=== PATIENT | female | born 1980 | race Two or more races ===

== ENCOUNTER 2022-08-07 10:52 | Emergency (ER) | payer OTHER ==
[2022-08-07 11:10] VITALS: BP 118/80; PULSE 87; RESP 18; TEMP 98.1; BMI 18.6
[2022-08-07] MEDS ORDERED: DIPHTH,PERTUSS(ACELL),TET 0.5 ML DISP.SYRIN IM ONE (12:19)
[2022-08-07] MEDS ORDERED: CEPHALEXIN MONOHYDRATE 500 MG CAPSULE (UD) PO ONE (12:47)
== END 2022-08-07 13:02 | disposition home or self-care (01) ==
LOC: JERFT 10:52
PROC: 3E0234Z Introduction of Serum, Toxoid and Vaccine into Muscle, Percutaneous Approach (ICD-10-PCS; principal; 2022-08-07)
DX: L03.011 Cellulitis of right finger (principal); S61.212S Laceration without foreign body of right middle finger without damage to nail, sequela; W19.XXXA Unspecified fall, initial encounter
CPT/HCPCS: 73140-TC-RT-FY; 90471; 90715; 99283-25

== ENCOUNTER 2022-10-06 14:19 | Inpatient (IN) | payer OTHER ==
[2022-10-06 18:29] LABS: BASO % 0.7 % (0-2.0); EOS % 2.2 % (0-4.5); HEMOGLOBIN 12.3 GM/dL (10.7-15.3); LYMPH % 37.4 % (8-40); MCH 33.7 pg (25.7-33.7); MCHC 33.2 g/dl (32.0-36.0); MEAN CELL VOLUME 101.7 fl (80-96); MEAN PLT VOLUME 7.7 fl (7.5-11.1); MONO % 6.4 % (3.8-10.2); NEUT % 53.3 % (42.8-82.8); PLATELET COUNT 281 10^3/uL (134-434); RBC 3.64 M/mm3 (3.60-5.2); RDW 13.7 % (11.6-15.6); WHITE BLOOD COUNT 5.2 K/mm3 (4.0-10.0)
[2022-10-06 18:36] LABS: INR 1.08 (0.83-1.09); PROTHROMBIN TIME (PATIENT) 12.4 SEC (9.7-13.0)
[2022-10-06 18:39] LABS: ACTIVATED PTT 28.5 SECONDS (25.2-36.5)
[2022-10-06 19:26] LABS: EPI CELLS 19 /uL (0-25.1); HYALINE CASTS 1 /uL (0-3.1); URINE APPEARANCE CLOUDY; URINE BACTERIA 6261 /uL (0-1359); URINE BILIRUBIN NEGATIVE (NEGATIVE); URINE COLOR YELLOW; URINE GLUCOSE (UA) NEGATIVE (NEGATIVE); URINE KETONE NEGATIVE (NEGATIVE); URINE LEUK ESTERASE NEGATIVE (NEGATIVE); URINE NITRITE POSITIVE (NEGATIVE); URINE PROTEIN NEGATIVE (NEGATIVE); URINE RBC 10 /uL (0-23.9); URINE UROBILINOGEN 0.2 mg/dL (0.2-1.0); URINE WBC 28 /uL (0-25.8)
[2022-10-06] MEDS ORDERED: ACETAMINOPHEN 1000 MG/100 ML BAG IVPB ONE (19:55)
[2022-10-06 20:22] LABS: ALBUMIN 3.1 g/dl (3.4-5.0); CALCIUM 8.1 mg/dL (8.5-10.1)
[2022-10-06 20:23] LABS: BLOOD UREA NITROGEN 6.2 mg/dL (7-18)
[2022-10-06 20:26] LABS: CREATININE 0.6 mg/dL (0.55-1.3)
[2022-10-06 20:27] LABS: TOT PROT 5.8 g/dl (6.4-8.2)
[2022-10-06 20:28] LABS: BILIRUBIN,TOTAL 0.5 mg/dL (0.2-1)
[2022-10-06] MEDS ORDERED: ACETAMINOPHEN INJECTION 100 ML IVPB ONE (21:45)
[2022-10-06] MEDS ORDERED: CEFTRIAXONE 1 GM in DEXTROSE 5%-WATER - 100 ML IVPB ONE (21:55)
[2022-10-06] MEDS ORDERED: CEFTRIAXONE 1 GM/50 ML BAG ONE (22:33)
[2022-10-07] MEDS ORDERED: MELATONIN 5 MG TABLETS PO ONE (01:23)
[2022-10-07] MEDS ORDERED: ALBUTEROL SO4 HFA INHALER IH PRN (03:10)
[2022-10-07 08:08] LABS: BASO % 1.3 % (0-2.0); EOS % 4.1 % (0-4.5); HEMOGLOBIN 11.7 GM/dL (10.7-15.3); MCH 33.8 pg (25.7-33.7); MCHC 33.4 g/dl (32.0-36.0); MEAN CELL VOLUME 101.3 fl (80-96); MEAN PLT VOLUME 8.3 fl (7.5-11.1); MONO % 8.3 % (3.8-10.2); NEUT % 45.3 % (42.8-82.8); PLATELET COUNT 278 10^3/uL (134-434); RBC 3.46 M/mm3 (3.60-5.2); RDW 13.7 % (11.6-15.6); WHITE BLOOD COUNT 4.3 K/mm3 (4.0-10.0)
[2022-10-07 08:28] LABS: ALBUMIN 2.8 g/dl (3.4-5.0); CALCIUM 8.1 mg/dL (8.5-10.1)
[2022-10-07 08:29] LABS: BLOOD UREA NITROGEN 8.8 mg/dL (7-18); MAGNESIUM 2.2 mg/dL (1.8-2.4)
[2022-10-07 08:32] LABS: CREATININE 0.6 mg/dL (0.55-1.3); PHOSPHOROUS 3.5 mg/dL (2.5-4.9)
[2022-10-07 08:34] LABS: BILIRUBIN,TOTAL 0.7 mg/dL (0.2-1); TOT PROT 5.3 g/dl (6.4-8.2)
[2022-10-07] MEDS ORDERED: ENOXAPARIN NA (PORCINE) 40 MG/0.4 ML DISP.SYRIN SQ SCH (10:00)
[2022-10-07] MEDS ORDERED: FLUoxetine HCL 20 MG CAPSULE PO SCH (10:00)
[2022-10-07] MEDS ORDERED: clonazePAM 0.5 MG TABLET PO SCH (10:00)
[2022-10-07] MEDS ORDERED: DEXTROSE 4 GM TAB.CHEW PO SCH ×2 (10:15→11:45)
[2022-10-07] MEDS ORDERED: PANTOPRAZOLE 20 MG TABLET PO ONE (11:15)
[2022-10-07] MEDS ORDERED: clonazePAM 0.5 MG TABLET ONE (11:15)
[2022-10-07] MEDS ORDERED: POTASSIUM CHLORIDE TABS 20 MEQ TABLET.ER (FP) PO ONE (11:16)
[2022-10-07] MEDS ORDERED: metoPROLOL SUCCINATE 25 MG TAB.SR.24H (FP) PO ONE (11:16)
[2022-10-07] MEDS ORDERED: levETIRAcetam 500 MG TABLET (FP) PO ONE (11:16)
[2022-10-07] MEDS: PANTOPRAZOLE 20 MG TABLET PO SCH (11:21)
[2022-10-07] MEDS: metoPROLOL SUCCINATE 25 MG TAB.SR.24H (FP) PO SCH (11:21)
[2022-10-07] MEDS: levETIRAcetam 500 MG TABLET (FP) PO SCH ×2 (11:21→22:02)
[2022-10-07] MEDS: PERPHENAZINE 4 MG TABLET PO SCH (11:22)
[2022-10-07] MEDS: POTASSIUM CHLORIDE TABS 20 MEQ TABLET.ER (FP) PO SCH ×2 (11:22→22:02)
[2022-10-07] MEDS ORDERED: ZOLPIDEM TARTRATE 5 MG TABLET PO PRN (14:30)
[2022-10-07] MEDS ORDERED: GABAPENTIN 400 MG CAPSULE ONE (15:36)
[2022-10-07] MEDS: GABAPENTIN 400 MG CAPSULE PO SCH ×2 (15:41→22:01)
[2022-10-07] MEDS: BENZTROPINE MESYLATE 1 MG TABLET PO SCH (17:49)
[2022-10-07] MEDS: INSULIN SLIDING SCALE (NOVOLOG) 1 VIAL SQ SCH ×2 (18:00→22:06)
[2022-10-07] MEDS ORDERED: LORazepam 2 MG/ML SDV VIAL IVPUSH PRN (20:03)
[2022-10-07] MEDS: ATORVASTATIN CA 20 MG TABLET (FP) PO SCH (22:01)
[2022-10-07] MEDS: clonazePAM 0.5 MG TABLET PO PRN (22:02)
[2022-10-07] MEDS: CEFTRIAXONE 1 GM in DEXTROSE 5%-WATER - 50 ML IVPB SCH (22:37)
[2022-10-08] MEDS: INSULIN SLIDING SCALE (NOVOLOG) 1 VIAL SQ SCH ×4 (06:26→21:59)
[2022-10-08 07:04] LABS: COCAINE, UR NEGATIVE (NEGATIVE); METHADONE, UR NEGATIVE (NEGATIVE); OPIATES, URI NEGATIVE (NEGATIVE); URINE AMPHETAMINES NEGATIVE (NEGATIVE); URINE BENZODIAZEPINES NEGATIVE (NEGATIVE)
[2022-10-08 07:05] LABS: URINE BARBITURATES NEGATIVE (NEGATIVE)
[2022-10-08 07:25] LABS: PHENCYCLIDINE,URINE POSITIVE (NEGATIVE)
[2022-10-08 09:14] LABS: BLOOD UREA NITROGEN 7.5 mg/dL (7-18); CALCIUM 8.1 mg/dL (8.5-10.1)
[2022-10-08 09:15] LABS: MAGNESIUM 2.2 mg/dL (1.8-2.4)
[2022-10-08 09:16] LABS: BASO % 1.2 % (0-2.0); EOS % 2.3 % (0-4.5); HEMATOCRIT 40.9 % (32.4-45.2); HEMOGLOBIN 13.3 GM/dL (10.7-15.3); LYMPH % 37.1 % (8-40); MCH 33.3 pg (25.7-33.7); MCHC 32.4 g/dl (32.0-36.0); MEAN CELL VOLUME 102.5 fl (80-96); MEAN PLT VOLUME 7.8 fl (7.5-11.1); MONO % 6.8 % (3.8-10.2); NEUT % 52.6 % (42.8-82.8); PLATELET COUNT 282 10^3/uL (134-434); RBC 3.98 M/mm3 (3.60-5.2); RDW 14.2 % (11.6-15.6); WHITE BLOOD COUNT 4.7 K/mm3 (4.0-10.0)
[2022-10-08 09:17] LABS: CREATININE 0.7 mg/dL (0.55-1.3)
[2022-10-08 09:19] LABS: BILIRUBIN,TOTAL 0.5 mg/dL (0.2-1); TOT PROT 5.8 g/dl (6.4-8.2)
[2022-10-08] MEDS: FLUoxetine HCL 20 MG CAPSULE PO SCH (10:12)
[2022-10-08] MEDS: POTASSIUM CHLORIDE TABS 20 MEQ TABLET.ER (FP) PO SCH ×2 (10:12→21:52)
[2022-10-08] MEDS: levETIRAcetam 500 MG TABLET (FP) PO SCH ×2 (10:12→21:52)
[2022-10-08] MEDS: ENOXAPARIN NA (PORCINE) 40 MG/0.4 ML DISP.SYRIN SQ SCH (10:12)
[2022-10-08] MEDS: CEFTRIAXONE 1 GM in DEXTROSE 5%-WATER - 50 ML IVPB SCH (10:13)
[2022-10-08] MEDS: metoPROLOL SUCCINATE 25 MG TAB.SR.24H (FP) PO SCH (10:13)
[2022-10-08] MEDS: PANTOPRAZOLE 20 MG TABLET PO SCH (10:13)
[2022-10-08] MEDS: GABAPENTIN 400 MG CAPSULE PO SCH ×2 (10:13→21:52)
[2022-10-08] MEDS: PERPHENAZINE 4 MG TABLET PO SCH (10:14)
[2022-10-08] MEDS: BENZTROPINE MESYLATE 1 MG TABLET PO SCH (10:19)
[2022-10-08] MEDS: ATORVASTATIN CA 20 MG TABLET (FP) PO SCH (21:52)
[2022-10-08] MEDS: clonazePAM 0.5 MG TABLET PO PRN (22:05)
[2022-10-09] MEDS: INSULIN SLIDING SCALE (NOVOLOG) 1 VIAL SQ SCH ×4 (07:00→21:27)
[2022-10-09 08:27] LABS: BASO % 0.7 % (0-2.0); EOS % 2.5 % (0-4.5); HEMOGLOBIN 11.6 GM/dL (10.7-15.3); LYMPH % 36.2 % (8-40); MCH 34.9 pg (25.7-33.7); MCHC 34.3 g/dl (32.0-36.0); MEAN PLT VOLUME 8.2 fl (7.5-11.1); NEUT % 53.6 % (42.8-82.8); PLATELET COUNT 251 10^3/uL (134-434); RBC 3.33 M/mm3 (3.60-5.2); RDW 14.2 % (11.6-15.6); WHITE BLOOD COUNT 4.7 K/mm3 (4.0-10.0)
[2022-10-09 08:30] LABS: CALCIUM 7.7 mg/dL (8.5-10.1)
[2022-10-09 08:31] LABS: ALBUMIN 2.7 g/dl (3.4-5.0); BLOOD UREA NITROGEN 10.4 mg/dL (7-18); MAGNESIUM 2.2 mg/dL (1.8-2.4)
[2022-10-09 08:34] LABS: CREATININE 0.7 mg/dL (0.55-1.3)
[2022-10-09 08:35] LABS: TOT PROT 5.2 g/dl (6.4-8.2)
[2022-10-09 08:36] LABS: BILIRUBIN,TOTAL 0.5 mg/dL (0.2-1)
[2022-10-09] MEDS: metoPROLOL SUCCINATE 25 MG TAB.SR.24H (FP) PO SCH (09:39)
[2022-10-09] MEDS: FLUoxetine HCL 20 MG CAPSULE PO SCH (09:39)
[2022-10-09] MEDS: PANTOPRAZOLE 20 MG TABLET PO SCH (09:39)
[2022-10-09] MEDS: GABAPENTIN 400 MG CAPSULE PO SCH ×2 (09:39→21:23)
[2022-10-09] MEDS: CEFTRIAXONE 1 GM in DEXTROSE 5%-WATER - 50 ML IVPB SCH (09:40)
[2022-10-09] MEDS: levETIRAcetam 500 MG TABLET (FP) PO SCH ×2 (09:40→21:23)
[2022-10-09] MEDS: BENZTROPINE MESYLATE 1 MG TABLET PO SCH (09:40)
[2022-10-09] MEDS: ENOXAPARIN NA (PORCINE) 40 MG/0.4 ML DISP.SYRIN SQ SCH (09:40)
[2022-10-09] MEDS: PERPHENAZINE 4 MG TABLET PO SCH (09:43)
[2022-10-09] MEDS: POTASSIUM CHLORIDE TABS 20 MEQ TABLET.ER (FP) PO SCH ×2 (09:47→21:23)
[2022-10-09 13:33] VITALS: BMI 17.5
[2022-10-09] MEDS ORDERED: PANTOPRAZOLE 40 MG TABLET PO SCH (17:11)
[2022-10-09] MEDS: PANTOPRAZOLE 40 MG TABLET PO SCH (18:13)
[2022-10-09] MEDS: ATORVASTATIN CA 20 MG TABLET (FP) PO SCH (21:23)
[2022-10-10] MEDS: clonazePAM 0.5 MG TABLET PO PRN ×2 (05:51→21:26)
[2022-10-10] MEDS: INSULIN SLIDING SCALE (NOVOLOG) 1 VIAL SQ SCH ×4 (06:25→21:44)
[2022-10-10 08:37] LABS: BASO % 0.8 % (0-2.0); EOS % 3.2 % (0-4.5); HEMATOCRIT 34.9 % (32.4-45.2); HEMOGLOBIN 11.8 GM/dL (10.7-15.3); MCH 34.7 pg (25.7-33.7); MCHC 33.8 g/dl (32.0-36.0); MEAN CELL VOLUME 102.5 fl (80-96); MEAN PLT VOLUME 8.5 fl (7.5-11.1); MONO % 5.8 % (3.8-10.2); NEUT % 65.2 % (42.8-82.8); PLATELET COUNT 261 10^3/uL (134-434); RDW 13.9 % (11.6-15.6); WHITE BLOOD COUNT 3.5 K/mm3 (4.0-10.0)
[2022-10-10 08:58] LABS: ALBUMIN 2.8 g/dl (3.4-5.0); BLOOD UREA NITROGEN 8.8 mg/dL (7-18); MAGNESIUM 2.3 mg/dL (1.8-2.4)
[2022-10-10 09:01] LABS: CREATININE 0.6 mg/dL (0.55-1.3)
[2022-10-10 09:03] LABS: BILIRUBIN,TOTAL 0.6 mg/dL (0.2-1); TOT PROT 5.4 g/dl (6.4-8.2)
[2022-10-10] MEDS: CEFTRIAXONE 1 GM in DEXTROSE 5%-WATER - 50 ML IVPB SCH (09:20)
[2022-10-10] MEDS: levETIRAcetam 500 MG TABLET (FP) PO SCH ×2 (09:21→21:28)
[2022-10-10] MEDS: BENZTROPINE MESYLATE 1 MG TABLET PO SCH (09:21)
[2022-10-10] MEDS: metoPROLOL SUCCINATE 25 MG TAB.SR.24H (FP) PO SCH (09:21)
[2022-10-10] MEDS: ENOXAPARIN NA (PORCINE) 40 MG/0.4 ML DISP.SYRIN SQ SCH (09:21)
[2022-10-10] MEDS: POTASSIUM CHLORIDE TABS 20 MEQ TABLET.ER (FP) PO SCH ×2 (09:21→21:27)
[2022-10-10] MEDS: FLUoxetine HCL 20 MG CAPSULE PO SCH (09:21)
[2022-10-10] MEDS: GABAPENTIN 400 MG CAPSULE PO SCH ×2 (09:21→21:26)
[2022-10-10] MEDS: PANTOPRAZOLE 40 MG TABLET PO SCH (09:21)
[2022-10-10] MEDS: PERPHENAZINE 4 MG TABLET PO SCH (09:22)
[2022-10-11] MEDS: INSULIN SLIDING SCALE (NOVOLOG) 1 VIAL SQ SCH ×4 (06:09→22:09)
[2022-10-11 08:19] LABS: BASO % 0.9 % (0-2.0); EOS % 3.5 % (0-4.5); HEMATOCRIT 34.3 % (32.4-45.2); HEMOGLOBIN 11.4 GM/dL (10.7-15.3); LYMPH % 41.9 % (8-40); MCH 34.1 pg (25.7-33.7); MCHC 33.1 g/dl (32.0-36.0); MEAN PLT VOLUME 8.7 fl (7.5-11.1); MONO % 6.4 % (3.8-10.2); NEUT % 47.3 % (42.8-82.8); PLATELET COUNT 257 10^3/uL (134-434); RBC 3.33 M/mm3 (3.60-5.2); RDW 14.2 % (11.6-15.6); WHITE BLOOD COUNT 4.4 K/mm3 (4.0-10.0)
[2022-10-11 08:45] LABS: CALCIUM 7.9 mg/dL (8.5-10.1)
[2022-10-11 08:46] LABS: ALBUMIN 2.9 g/dl (3.4-5.0); BLOOD UREA NITROGEN 9.1 mg/dL (7-18); MAGNESIUM 2.3 mg/dL (1.8-2.4)
[2022-10-11 08:49] LABS: CREATININE 0.6 mg/dL (0.55-1.3); PHOSPHOROUS 3.5 mg/dL (2.5-4.9)
[2022-10-11 08:50] LABS: BILIRUBIN,TOTAL 0.3 mg/dL (0.2-1); TOT PROT 5.3 g/dl (6.4-8.2)
[2022-10-11] MEDS: PERPHENAZINE 4 MG TABLET PO SCH (10:14)
[2022-10-11] MEDS: BENZTROPINE MESYLATE 1 MG TABLET PO SCH (10:14)
[2022-10-11] MEDS: POTASSIUM CHLORIDE TABS 20 MEQ TABLET.ER (FP) PO SCH ×2 (10:17→22:09)
[2022-10-11] MEDS: metoPROLOL SUCCINATE 25 MG TAB.SR.24H (FP) PO SCH (10:17)
[2022-10-11] MEDS: CEFTRIAXONE 1 GM in DEXTROSE 5%-WATER - 50 ML IVPB SCH (10:17)
[2022-10-11] MEDS: GABAPENTIN 400 MG CAPSULE PO SCH ×2 (10:17→22:09)
[2022-10-11] MEDS: levETIRAcetam 500 MG TABLET (FP) PO SCH ×2 (10:17→22:09)
[2022-10-11] MEDS: PANTOPRAZOLE 40 MG TABLET PO SCH (10:17)
[2022-10-11] MEDS: FLUoxetine HCL 20 MG CAPSULE PO SCH (10:17)
[2022-10-11] MEDS: clonazePAM 0.5 MG TABLET PO PRN ×2 (10:43→22:09)
[2022-10-12] MEDS: INSULIN SLIDING SCALE (NOVOLOG) 1 VIAL SQ SCH ×4 (06:38→21:24)
[2022-10-12 07:27] LABS: BASO % 0.9 % (0-2.0); EOS % 3.4 % (0-4.5); HEMATOCRIT 36.5 % (32.4-45.2); HEMOGLOBIN 12.3 GM/dL (10.7-15.3); LYMPH % 40.3 % (8-40); MCH 34.6 pg (25.7-33.7); MCHC 33.6 g/dl (32.0-36.0); MEAN PLT VOLUME 8.3 fl (7.5-11.1); MONO % 7.3 % (3.8-10.2); NEUT % 48.1 % (42.8-82.8); PLATELET COUNT 278 10^3/uL (134-434); RBC 3.54 M/mm3 (3.60-5.2); RDW 13.9 % (11.6-15.6); WHITE BLOOD COUNT 4.4 K/mm3 (4.0-10.0)
[2022-10-12 07:53] LABS: CALCIUM 8.2 mg/dL (8.5-10.1)
[2022-10-12 07:54] LABS: BLOOD UREA NITROGEN 10.6 mg/dL (7-18)
[2022-10-12 07:56] LABS: CREATININE 0.7 mg/dL (0.55-1.3)
[2022-10-12 07:58] LABS: BILIRUBIN,TOTAL 0.4 mg/dL (0.2-1); TOT PROT 5.7 g/dl (6.4-8.2)
[2022-10-12] MEDS: metoPROLOL SUCCINATE 25 MG TAB.SR.24H (FP) PO SCH (09:53)
[2022-10-12] MEDS: POTASSIUM CHLORIDE TABS 20 MEQ TABLET.ER (FP) PO SCH ×2 (09:53→21:21)
[2022-10-12] MEDS: GABAPENTIN 400 MG CAPSULE PO SCH ×2 (09:54→21:21)
[2022-10-12] MEDS: CEFTRIAXONE 1 GM in DEXTROSE 5%-WATER - 50 ML IVPB SCH (09:54)
[2022-10-12] MEDS: PANTOPRAZOLE 40 MG TABLET PO SCH (09:54)
[2022-10-12] MEDS: levETIRAcetam 500 MG TABLET (FP) PO SCH ×2 (09:54→21:21)
[2022-10-12] MEDS: FLUoxetine HCL 20 MG CAPSULE PO SCH (09:54)
[2022-10-12] MEDS: BENZTROPINE MESYLATE 1 MG TABLET PO SCH (09:56)
[2022-10-12] MEDS: PERPHENAZINE 4 MG TABLET PO SCH (09:57)
[2022-10-12] MEDS: clonazePAM 0.5 MG TABLET PO PRN ×2 (10:09→21:24)
[2022-10-12] MEDS: CEFUROXIME AXETIL 500 MG TABLET PO SCH (21:21)
[2022-10-13 05:36] VITALS: RESP 18
[2022-10-13] MEDS: INSULIN SLIDING SCALE (NOVOLOG) 1 VIAL SQ SCH ×2 (06:13→11:14)
[2022-10-13] MEDS: POTASSIUM CHLORIDE TABS 20 MEQ TABLET.ER (FP) PO SCH (09:34)
[2022-10-13] MEDS: GABAPENTIN 400 MG CAPSULE PO SCH (09:35)
[2022-10-13] MEDS: levETIRAcetam 500 MG TABLET (FP) PO SCH (09:35)
[2022-10-13] MEDS: BENZTROPINE MESYLATE 1 MG TABLET PO SCH (09:35)
[2022-10-13] MEDS: CEFUROXIME AXETIL 500 MG TABLET PO SCH (09:35)
[2022-10-13] MEDS: PANTOPRAZOLE 40 MG TABLET PO SCH (09:35)
[2022-10-13] MEDS: FLUoxetine HCL 20 MG CAPSULE PO SCH (09:35)
[2022-10-13] MEDS: metoPROLOL SUCCINATE 25 MG TAB.SR.24H (FP) PO SCH (09:35)
[2022-10-13 10:36] VITALS: BP 127/89; PULSE 66; TEMP 97.8
[2022-10-13] MEDS: PERPHENAZINE 4 MG TABLET PO SCH (11:14)
== END 2022-10-13 13:17 | disposition home or self-care (01) | DRG 204 ==
LOC: JER 14:19 → JERBED 22:05 → OBSVTOIN 10-07 00:32 → J4W 10-07 20:43
PROVIDERS: ADMIT Internal Medicine; ATTEND Internal Medicine
DX: R55 Syncope and collapse (principal); N39.0 Urinary tract infection, site not specified; C18.9 Malignant neoplasm of colon, unspecified; R64 Cachexia; Z86.73 Personal history of transient ischemic attack (TIA), and cerebral infarction without residual deficits; E11.9 Type 2 diabetes mellitus without complications; I10 Essential (primary) hypertension; R56.9 Unspecified convulsions; N93.9 Abnormal uterine and vaginal bleeding, unspecified; R74.01 Elevation of levels of liver transaminase levels; B96.1 Klebsiella pneumoniae [K. pneumoniae] as the cause of diseases classified elsewhere
CPT/HCPCS: 0241U-QW; 36415; 70450-TC; 71045-TC-FY; 72125-TC; 72170-TC-FY; 72192-TC; 73521-TC-FY; 76705-TC; 76830-TC; 80053; 80307; 81003; 82550; 82607; 82962; 83036; 83605; 83735; 84100; 84484; 84703; 85025; 85610; 85730; 86704; 86803; 87086; 87186; 93005; 93010; 93306-TC; 93880-TC; 95816; 97116-GP; 97162-GP; 99285-25; G0378

== ENCOUNTER 2022-10-29 13:51 | Inpatient (IN) | payer OTHER ==
[2022-10-29 16:25] LABS: HEMATOCRIT 33.8 % (32.4-45.2); HEMOGLOBIN 11.6 GM/dL (10.7-15.3); MCH 34.9 pg (25.7-33.7); MCHC 34.3 g/dl (32.0-36.0); MEAN CELL VOLUME 101.8 fl (80-96); MEAN PLT VOLUME 7.5 fl (7.5-11.1); PLATELET COUNT 287 10^3/uL (134-434); RBC 3.32 M/mm3 (3.60-5.2); RDW 13.7 % (11.6-15.6); WHITE BLOOD COUNT 3.9 K/mm3 (4.0-10.0)
[2022-10-29 16:34] LABS: INR 1.03 (0.83-1.09); PROTHROMBIN TIME (PATIENT) 11.9 SEC (9.7-13.0)
[2022-10-29 16:37] LABS: ACTIVATED PTT 26.6 SECONDS (25.2-36.5)
[2022-10-29 16:43] LABS: CALCIUM 7.8 mg/dL (8.5-10.1)
[2022-10-29 16:44] LABS: ALBUMIN 3.1 g/dl (3.4-5.0); BLOOD UREA NITROGEN 9.3 mg/dL (7-18)
[2022-10-29 16:47] LABS: CREATININE 0.6 mg/dL (0.55-1.3)
[2022-10-29 16:48] LABS: TOT PROT 6.1 g/dl (6.4-8.2)
[2022-10-29 16:49] LABS: BILIRUBIN,TOTAL 0.3 mg/dL (0.2-1)
[2022-10-29] MEDS ORDERED: BENZTROPINE MESYLATE 1 MG TABLET PO SCH (18:15)
[2022-10-29 18:33] LABS: OPIATES, URI NEGATIVE (NEGATIVE); PHENCYCLIDINE,URINE NEGATIVE (NEGATIVE); URINE BENZODIAZEPINES NEGATIVE (NEGATIVE)
[2022-10-29 18:34] LABS: METHADONE, UR NEGATIVE (NEGATIVE)
[2022-10-29 18:35] LABS: EPI CELLS 6 /uL (0-25.1); HYALINE CASTS 2 /uL (0-3.1); PH,URINE 7.5 (5.0-8.0); URINE APPEARANCE CLOUDY; URINE BACTERIA >9,000 /uL (0-1359); URINE BILIRUBIN NEGATIVE (NEGATIVE); URINE COLOR YELLOW; URINE GLUCOSE (UA) NEGATIVE (NEGATIVE); URINE KETONE NEGATIVE (NEGATIVE); URINE LEUK ESTERASE 1+ (NEGATIVE); URINE NITRITE POSITIVE (NEGATIVE); URINE PROTEIN NEGATIVE (NEGATIVE); URINE RBC 12 /uL (0-23.9); URINE WBC 229 /uL (0-25.8)
[2022-10-29 18:36] LABS: COCAINE, UR NEGATIVE (NEGATIVE)
[2022-10-29 18:38] LABS: URINE AMPHETAMINES NEGATIVE (NEGATIVE); URINE BARBITURATES NEGATIVE (NEGATIVE)
[2022-10-29] MEDS ORDERED: CEFTRIAXONE 1 GM in DEXTROSE 5%-WATER - 100 ML IVPB ONE (19:35)
[2022-10-29] MEDS ORDERED: DEXTROSE 5%-WATER 500 ML PVC-FREE INFUS.BAG IV ONE (19:36)
[2022-10-29] MEDS ORDERED: CEFTRIAXONE 1 GM/50 ML BAG ONE (19:42)
[2022-10-29] MEDS ORDERED: levETIRAcetam 500 MG TABLET (FP) PO ONE (20:56)
[2022-10-29] MEDS ORDERED: clonazePAM 0.5 MG TABLET ONE (20:56)
[2022-10-29] MEDS: levETIRAcetam 500 MG TABLET (FP) PO SCH (21:03)
[2022-10-29] MEDS ORDERED: clonazePAM 0.5 MG TABLET PO SCH (22:00)
[2022-10-29] MEDS ORDERED: levETIRAcetam 500 MG TABLET (FP) PO SCH (22:00)
[2022-10-30] MEDS ORDERED: DEXTROSE 50%-WATER 25 GM/50 ML DISP.SYRIN IVPUSH PRN (03:22)
[2022-10-30] MEDS ORDERED: ALBUTEROL SO4 HFA INHALER IH PRN (03:56)
[2022-10-30 06:49] LABS: BASO % 0.8 % (0-2.0); EOS % 2.8 % (0-4.5); HEMATOCRIT 32.1 % (32.4-45.2); HEMOGLOBIN 11.1 GM/dL (10.7-15.3); LYMPH % 41.7 % (8-40); MCH 34.8 pg (25.7-33.7); MCHC 34.6 g/dl (32.0-36.0); MEAN CELL VOLUME 100.7 fl (80-96); MEAN PLT VOLUME 7.9 fl (7.5-11.1); MONO % 5.7 % (3.8-10.2); PLATELET COUNT 274 10^3/uL (134-434); RBC 3.19 M/mm3 (3.60-5.2); RDW 13.7 % (11.6-15.6); WHITE BLOOD COUNT 3.7 K/mm3 (4.0-10.0)
[2022-10-30] MEDS ORDERED: THIAMINE HCL 200 MG/2 ML VIAL ONE (07:07)
[2022-10-30 07:09] LABS: ALBUMIN 2.9 g/dl (3.4-5.0); CALCIUM 8.1 mg/dL (8.5-10.1); MAGNESIUM 2.1 mg/dL (1.8-2.4)
[2022-10-30] MEDS: THIAMINE HCL 200 MG/2 ML VIAL IVPB SCH (07:11)
[2022-10-30] MEDS: DEXTROSE 5%-NORMAL SALINE 1,000 ML IV SCH (07:11)
[2022-10-30 07:12] LABS: CREATININE 0.6 mg/dL (0.55-1.3); PHOSPHOROUS 3.1 mg/dL (2.5-4.9)
[2022-10-30] MEDS: INSULIN SLIDING SCALE (NOVOLOG) 1 VIAL SQ SCH ×4 (07:12→21:29)
[2022-10-30 07:14] LABS: BILIRUBIN,TOTAL 0.6 mg/dL (0.2-1); TOT PROT 5.6 g/dl (6.4-8.2)
[2022-10-30] MEDS ORDERED: PANTOPRAZOLE 40 MG TABLET PO ONE (09:18)
[2022-10-30] MEDS ORDERED: ASPIRIN 81 MG CHEWABLE TABLETS ONE (09:18)
[2022-10-30] MEDS ORDERED: NICOTINE 7 MG/24 HOURS TOPICAL PATCH TD ONE (09:18)
[2022-10-30] MEDS ORDERED: metoPROLOL SUCCINATE 25 MG TAB.SR.24H (FP) PO ONE (09:18)
[2022-10-30] MEDS ORDERED: levETIRAcetam 500 MG TABLET (FP) PO ONE (09:18)
[2022-10-30] MEDS: ENOXAPARIN NA (PORCINE) 40 MG/0.4 ML DISP.SYRIN SQ SCH (09:21)
[2022-10-30] MEDS: PANTOPRAZOLE 40 MG TABLET PO SCH (09:21)
[2022-10-30] MEDS: NICOTINE 7 MG/24 HOURS TOPICAL PATCH TD SCH (09:21)
[2022-10-30] MEDS: levETIRAcetam 500 MG TABLET (FP) PO SCH ×2 (09:21→21:23)
[2022-10-30] MEDS: ASPIRIN COATED 81 MG TABLET.EC PO SCH (09:21)
[2022-10-30] MEDS: metoPROLOL SUCCINATE 25 MG TAB.SR.24H (FP) PO SCH (09:22)
[2022-10-30] MEDS: CEFTRIAXONE 1 GM in DEXTROSE 5%-WATER - 50 ML IVPB SCH (20:25)
[2022-10-30] MEDS: ZOLPIDEM TARTRATE 5 MG TABLET PO SCH (21:23)
[2022-10-30] MEDS: ATORVASTATIN CA 20 MG TABLET (FP) PO SCH (21:23)
[2022-10-30] MEDS: GABAPENTIN 400 MG CAPSULE PO SCH (21:23)
[2022-10-31] MEDS: DEXTROSE 5%-NORMAL SALINE 1,000 ML IV SCH (03:00)
[2022-10-31] MEDS: INSULIN SLIDING SCALE (NOVOLOG) 1 VIAL SQ SCH ×4 (06:21→21:21)
[2022-10-31 08:24] LABS: HEMATOCRIT 33.2 % (32.4-45.2); HEMOGLOBIN 11.3 GM/dL (10.7-15.3); MCH 34.6 pg (25.7-33.7); MEAN CELL VOLUME 101.8 fl (80-96); MEAN PLT VOLUME 8.4 fl (7.5-11.1); PLATELET COUNT 259 10^3/uL (134-434); RBC 3.26 M/mm3 (3.60-5.2); RDW 13.4 % (11.6-15.6); WHITE BLOOD COUNT 4.4 K/mm3 (4.0-10.0)
[2022-10-31 08:56] LABS: CALCIUM 7.7 mg/dL (8.5-10.1)
[2022-10-31 08:57] LABS: ALBUMIN 2.7 g/dl (3.4-5.0); BLOOD UREA NITROGEN 11.2 mg/dL (7-18); MAGNESIUM 2.2 mg/dL (1.8-2.4)
[2022-10-31 09:00] LABS: CREATININE 0.6 mg/dL (0.55-1.3); PHOSPHOROUS 2.8 mg/dL (2.5-4.9)
[2022-10-31 09:01] LABS: BILIRUBIN,TOTAL 0.5 mg/dL (0.2-1); TOT PROT 5.3 g/dl (6.4-8.2)
[2022-10-31] MEDS: metoPROLOL SUCCINATE 25 MG TAB.SR.24H (FP) PO SCH (09:45)
[2022-10-31] MEDS: CEFTRIAXONE 1 GM in DEXTROSE 5%-WATER - 50 ML IVPB SCH (09:45)
[2022-10-31] MEDS: GABAPENTIN 400 MG CAPSULE PO SCH ×2 (09:45→21:22)
[2022-10-31] MEDS: PANTOPRAZOLE 40 MG TABLET PO SCH (09:45)
[2022-10-31] MEDS: FLUoxetine HCL 20 MG CAPSULE PO SCH (09:45)
[2022-10-31] MEDS: NICOTINE 7 MG/24 HOURS TOPICAL PATCH TD SCH (09:45)
[2022-10-31] MEDS: levETIRAcetam 500 MG TABLET (FP) PO SCH ×2 (09:45→21:22)
[2022-10-31] MEDS: ASPIRIN COATED 81 MG TABLET.EC PO SCH (09:45)
[2022-10-31] MEDS: ENOXAPARIN NA (PORCINE) 40 MG/0.4 ML DISP.SYRIN SQ SCH (09:46)
[2022-10-31] MEDS: PERPHENAZINE 4 MG TABLET PO SCH (09:47)
[2022-10-31] MEDS: THIAMINE HCL 200 MG/2 ML VIAL IVPB SCH (10:27)
[2022-10-31 15:04] VITALS: BMI 17.9
[2022-10-31] MEDS: ZOLPIDEM TARTRATE 5 MG TABLET PO SCH (21:21)
[2022-10-31] MEDS: clonazePAM 0.5 MG TABLET PO SCH (21:22)
[2022-10-31] MEDS: ATORVASTATIN CA 20 MG TABLET (FP) PO SCH (21:22)
[2022-11-01] MEDS: INSULIN SLIDING SCALE (NOVOLOG) 1 VIAL SQ SCH ×4 (06:56→21:13)
[2022-11-01] MEDS: DEXTROSE 5%-NORMAL SALINE 1,000 ML IV SCH ×2 (06:56→18:47)
[2022-11-01 07:59] LABS: HEMATOCRIT 30.3 % (32.4-45.2); HEMOGLOBIN 10.4 GM/dL (10.7-15.3); MCHC 34.3 g/dl (32.0-36.0); MEAN CELL VOLUME 102.2 fl (80-96); MEAN PLT VOLUME 8.5 fl (7.5-11.1); PLATELET COUNT 240 10^3/uL (134-434); RBC 2.97 M/mm3 (3.60-5.2); RDW 13.1 % (11.6-15.6); WHITE BLOOD COUNT 4.1 K/mm3 (4.0-10.0)
[2022-11-01 08:50] LABS: CALCIUM 7.3 mg/dL (8.5-10.1)
[2022-11-01 08:51] LABS: BLOOD UREA NITROGEN 8.1 mg/dL (7-18)
[2022-11-01 08:54] LABS: CREATININE 0.5 mg/dL (0.55-1.3)
[2022-11-01] MEDS: ENOXAPARIN NA (PORCINE) 40 MG/0.4 ML DISP.SYRIN SQ SCH (09:47)
[2022-11-01] MEDS: clonazePAM 0.5 MG TABLET PO SCH ×2 (09:48→21:12)
[2022-11-01] MEDS: metoPROLOL SUCCINATE 25 MG TAB.SR.24H (FP) PO SCH (09:48)
[2022-11-01] MEDS: FLUoxetine HCL 20 MG CAPSULE PO SCH (09:48)
[2022-11-01] MEDS: PANTOPRAZOLE 40 MG TABLET PO SCH (09:48)
[2022-11-01] MEDS: NICOTINE 7 MG/24 HOURS TOPICAL PATCH TD SCH (09:48)
[2022-11-01] MEDS: GABAPENTIN 400 MG CAPSULE PO SCH ×2 (09:48→21:12)
[2022-11-01] MEDS: levETIRAcetam 500 MG TABLET (FP) PO SCH ×2 (09:49→21:12)
[2022-11-01] MEDS: ASPIRIN COATED 81 MG TABLET.EC PO SCH (09:49)
[2022-11-01] MEDS: PERPHENAZINE 4 MG TABLET PO SCH (09:49)
[2022-11-01] MEDS: THIAMINE HCL 200 MG/2 ML VIAL IVPB SCH (09:49)
[2022-11-01] MEDS: CEFTRIAXONE 1 GM in DEXTROSE 5%-WATER - 50 ML IVPB SCH (09:50)
[2022-11-01] MEDS: ZOLPIDEM TARTRATE 5 MG TABLET PO SCH (21:12)
[2022-11-01] MEDS: ATORVASTATIN CA 20 MG TABLET (FP) PO SCH (21:12)
[2022-11-02] MEDS: INSULIN SLIDING SCALE (NOVOLOG) 1 VIAL SQ SCH ×4 (06:14→21:54)
[2022-11-02] MEDS: DEXTROSE 5%-NORMAL SALINE 1,000 ML IV SCH (06:18)
[2022-11-02] MEDS: THIAMINE HCL 200 MG/2 ML VIAL IVPB SCH (09:37)
[2022-11-02] MEDS: clonazePAM 0.5 MG TABLET PO SCH ×2 (09:37→21:05)
[2022-11-02] MEDS: levETIRAcetam 500 MG TABLET (FP) PO SCH (09:38)
[2022-11-02] MEDS: PANTOPRAZOLE 40 MG TABLET PO SCH (09:38)
[2022-11-02] MEDS: FLUoxetine HCL 20 MG CAPSULE PO SCH (09:38)
[2022-11-02] MEDS: ASPIRIN COATED 81 MG TABLET.EC PO SCH (09:38)
[2022-11-02] MEDS: GABAPENTIN 400 MG CAPSULE PO SCH ×2 (09:38→21:05)
[2022-11-02] MEDS: metoPROLOL SUCCINATE 25 MG TAB.SR.24H (FP) PO SCH (09:38)
[2022-11-02] MEDS: ENOXAPARIN NA (PORCINE) 40 MG/0.4 ML DISP.SYRIN SQ SCH (09:38)
[2022-11-02] MEDS: NICOTINE 7 MG/24 HOURS TOPICAL PATCH TD SCH (09:39)
[2022-11-02] MEDS: PERPHENAZINE 4 MG TABLET PO SCH (09:43)
[2022-11-02] MEDS: CEFTRIAXONE 1 GM in DEXTROSE 5%-WATER - 50 ML IVPB SCH (10:14)
[2022-11-02] MEDS: POLYETHYLENE GLYCOL (HEALTHYLAX) 3350 17 GM PACKET PO SCH ×2 (10:50→21:05)
[2022-11-02] MEDS: LACOSAMIDE 100 MG TABLET PO SCH (15:06)
[2022-11-02] MEDS: ATORVASTATIN CA 20 MG TABLET (FP) PO SCH (21:05)
[2022-11-02] MEDS: ZOLPIDEM TARTRATE 5 MG TABLET PO SCH (21:06)
[2022-11-03 05:17] VITALS: RESP 18
[2022-11-03] MEDS: INSULIN SLIDING SCALE (NOVOLOG) 1 VIAL SQ SCH ×2 (06:08→12:00)
[2022-11-03] MEDS: ENOXAPARIN NA (PORCINE) 40 MG/0.4 ML DISP.SYRIN SQ SCH (09:33)
[2022-11-03] MEDS: CEFTRIAXONE 1 GM in DEXTROSE 5%-WATER - 50 ML IVPB SCH (09:33)
[2022-11-03] MEDS: LACOSAMIDE 100 MG TABLET PO SCH (09:34)
[2022-11-03] MEDS: clonazePAM 0.5 MG TABLET PO SCH (09:34)
[2022-11-03] MEDS: NICOTINE 7 MG/24 HOURS TOPICAL PATCH TD SCH (09:34)
[2022-11-03] MEDS: POLYETHYLENE GLYCOL (HEALTHYLAX) 3350 17 GM PACKET PO SCH (09:34)
[2022-11-03] MEDS: FLUoxetine HCL 20 MG CAPSULE PO SCH (09:35)
[2022-11-03] MEDS: ASPIRIN COATED 81 MG TABLET.EC PO SCH (09:35)
[2022-11-03] MEDS: PANTOPRAZOLE 40 MG TABLET PO SCH (09:35)
[2022-11-03] MEDS: GABAPENTIN 400 MG CAPSULE PO SCH (09:35)
[2022-11-03] MEDS: metoPROLOL SUCCINATE 25 MG TAB.SR.24H (FP) PO SCH (09:36)
[2022-11-03] MEDS: THIAMINE HCL 200 MG/2 ML VIAL IVPB SCH (09:36)
[2022-11-03] MEDS: PERPHENAZINE 4 MG TABLET PO SCH (09:36)
[2022-11-03] MEDS ORDERED: levETIRAcetam 500 MG TABLET (FP) PO SCH (10:00)
[2022-11-03 14:47] VITALS: BP 108/69; PULSE 81; TEMP 98.9
== END 2022-11-03 16:58 | disposition home or self-care (01) | DRG 463 ==
LOC: JER 13:51 → JERBED 20:01 → UNDOADMIN 20:01 → J4W 10-30 12:44
PROVIDERS: ADMIT Internal Medicine; ATTEND Internal Medicine
DX: N39.0 Urinary tract infection, site not specified (principal); G92.8 Other toxic encephalopathy; J45.909 Unspecified asthma, uncomplicated; F43.10 Post-traumatic stress disorder, unspecified; T50.995A Adverse effect of other drugs, medicaments and biological substances, initial encounter; T42.4X5A Adverse effect of benzodiazepines, initial encounter; F20.9 Schizophrenia, unspecified; R64 Cachexia; Z68.1 Body mass index [BMI] 19.9 or less, adult; B96.1 Klebsiella pneumoniae [K. pneumoniae] as the cause of diseases classified elsewhere; E11.649 Type 2 diabetes mellitus with hypoglycemia without coma; F17.210 Nicotine dependence, cigarettes, uncomplicated; R56.9 Unspecified convulsions; Z85.038 Personal history of other malignant neoplasm of large intestine; Z86.73 Personal history of transient ischemic attack (TIA), and cerebral infarction without residual deficits
CPT/HCPCS: 0241U-QW; 36415; 70450-TC; 70496-TC; 70498-TC; 71046-TC-FY; 72125-TC; 72170-TC-FY; 73560-TC-LT-FY; 73560-TC-RT-FY; 80048; 80053; 80177; 80307; 81003; 82140; 82550; 82962; 83605; 83690; 83735; 84100; 84146; 84484; 84703; 85025; 85027; 85610; 85730; 86850; 86900; 86901; 87086; 87186; 93005; 93010; 97116-GP; 97161-GP; 99285-25; G0480

== ENCOUNTER 2022-12-29 04:07 | Day surgery (SDC) | payer OTHER ==
[2022-12-24 10:11] VITALS: BMI 16.9
[2022-12-29] MEDS ORDERED: ACETAMINOPHEN 325 MG TABLET (FP) PO PRN (09:00)
[2022-12-29] MEDS ORDERED: PROMETHAZINE HCL 25 MG/1 ML VIAL IVPB PRN (10:00)
[2022-12-29] MEDS ORDERED: LACTATED RINGERS SOLUTION 1,000 ML IV SCH (10:00)
[2022-12-29] MEDS ORDERED: ONDANSETRON 4 MG/2 ML VIAL IVPUSH PRN (10:00)
[2022-12-29] MEDS ORDERED: KETOROLAC TROMETHAMINE 30 MG/1 ML VIAL ONE (10:23)
[2022-12-29] MEDS ORDERED: DEXAMETHASONE SOD PHOSPHATE 4 MG/1 ML VIAL ONE (10:23)
[2022-12-29] MEDS ORDERED: PROPOFOL 20 ML ONE (10:24)
[2022-12-29] MEDS ORDERED: OXYTOCIN 10 UNITS/ML VIAL ONE (11:00)
[2022-12-29] MEDS ORDERED: MIDAZOLAM HCL 2 MG/2 ML SINGLE DOSE VIAL ONE (11:18)
[2022-12-29] MEDS ORDERED: ALBUTEROL SO4 HFA INHALER IH PRN (11:43)
[2022-12-29] MEDS ORDERED: PATIENT'S OWN MEDICATION (NON-FORMULARY) (Levetiracetam [Levetiracetam] 1,000 MG Tablet) PO SCH (11:45)
[2022-12-29] MEDS ORDERED: metoPROLOL SUCCINATE 25 MG TAB.SR.24H (FP) PO SCH (11:45)
[2022-12-29] MEDS ORDERED: levETIRAcetam 500 MG TABLET (FP) PO ONE (11:53)
[2022-12-29] MEDS ORDERED: metFORMIN HCL 500 MG TABLET (FP) PO SCH (13:45)
[2022-12-29 13:47] VITALS: RESP 16
[2022-12-29] MEDS: BENZTROPINE MESYLATE 1 MG TABLET PO SCH (14:30)
[2022-12-29] MEDS: amLODIPine BESYLATE 10 MG TABLET (FP) PO SCH (14:30)
[2022-12-29] MEDS: levETIRAcetam 500 MG TABLET (FP) PO SCH ×2 (14:31→22:38)
[2022-12-29] MEDS: clonazePAM 0.5 MG TABLET PO SCH (14:36)
[2022-12-29] MEDS: PANTOPRAZOLE 40 MG TABLET PO SCH (14:45)
[2022-12-29] MEDS: FLUoxetine HCL 20 MG CAPSULE PO SCH (14:45)
[2022-12-29] MEDS: metoPROLOL SUCCINATE 25 MG TAB.SR.24H (FP) PO SCH (14:46)
[2022-12-29] MEDS: PERPHENAZINE 4 MG TABLET PO SCH (14:47)
[2022-12-29] MEDS: oxyCODONE HCL 5 MG TABLET PO PRN (17:40)
[2022-12-29] MEDS: IBUPROFEN 400 MG TABLET (FP) PO PRN (19:16)
[2022-12-29 21:09] LABS: EOS % 1.1 % (0-4.5); HEMATOCRIT 32.4 % (32.4-45.2); HEMOGLOBIN 10.8 GM/dL (10.7-15.3); LYMPH % 2.8 % (8-40); MCH 33.1 pg (25.7-33.7); MCHC 33.5 g/dl (32.0-36.0); MEAN CELL VOLUME 99.1 fl (80-96); MONO % 2.4 % (3.8-10.2); NEUT % 93.7 % (42.8-82.8); PLATELET COUNT 247 10^3/uL (134-434); RBC 3.27 M/mm3 (3.60-5.2); RDW 14.8 % (11.6-15.6); WHITE BLOOD COUNT 10.1 K/mm3 (4.0-10.0)
[2022-12-29] MEDS ORDERED: ATORVASTATIN CA 20 MG TABLET (FP) PO SCH (22:00)
[2022-12-29] MEDS ORDERED: CYCLOBENZAPRINE HCL 10 MG TABLET (FP) PO SCH (22:00)
[2022-12-29] MEDS ORDERED: ZOLPIDEM TARTRATE 5 MG TABLET PO PRN (22:00)
[2022-12-29 22:10] LABS: ANISOCYTOSIS 1+; MACROCYTOSIS 1+
[2022-12-29 23:04] LABS: URINE APPEARANCE CLEAR; URINE BILIRUBIN NEGATIVE (NEGATIVE); URINE COLOR YELLOW; URINE GLUCOSE (UA) 2+ (NEGATIVE); URINE KETONE NEGATIVE (NEGATIVE); URINE LEUK ESTERASE NEGATIVE (NEGATIVE); URINE NITRITE NEGATIVE (NEGATIVE); URINE PROTEIN NEGATIVE (NEGATIVE); URINE UROBILINOGEN 0.2 mg/dL (0.2-1.0)
[2022-12-29 23:08] LABS: METHADONE, UR NEGATIVE (NEGATIVE); OPIATES, URI NEGATIVE (NEGATIVE); PHENCYCLIDINE,URINE NEGATIVE (NEGATIVE); URINE BENZODIAZEPINES NEGATIVE (NEGATIVE)
[2022-12-29 23:09] LABS: COCAINE, UR NEGATIVE (NEGATIVE)
[2022-12-29 23:10] LABS: URINE AMPHETAMINES NEGATIVE (NEGATIVE); URINE BARBITURATES NEGATIVE (NEGATIVE)
[2022-12-29 23:15] LABS: HYALINE CASTS 0.12 /uL (0-3.1); URINE RBC 11.5 /uL (0-23.9); URINE WBC 7.2 /uL (0-25.8)
[2022-12-30] MEDS: IBUPROFEN 400 MG TABLET (FP) PO PRN ×2 (01:50→09:06)
[2022-12-30 01:53] VITALS: TEMP 98.2
[2022-12-30] MEDS: clonazePAM 0.5 MG TABLET PO SCH ×2 (02:17→09:10)
[2022-12-30] MEDS: GABAPENTIN 400 MG CAPSULE PO SCH ×2 (02:17→09:02)
[2022-12-30] MEDS: oxyCODONE HCL 5 MG TABLET PO PRN (05:41)
[2022-12-30] MEDS: NICOTINE 21 MG/24 HOURS TOPICAL PATCH TD SCH ×2 (06:04→09:00)
[2022-12-30 08:41] VITALS: BP 104/71; PULSE 78
[2022-12-30] MEDS: BENZTROPINE MESYLATE 1 MG TABLET PO SCH (09:00)
[2022-12-30] MEDS: PANTOPRAZOLE 40 MG TABLET PO SCH (09:00)
[2022-12-30] MEDS: amLODIPine BESYLATE 10 MG TABLET (FP) PO SCH (09:01)
[2022-12-30] MEDS: levETIRAcetam 500 MG TABLET (FP) PO SCH (09:01)
[2022-12-30] MEDS: FLUoxetine HCL 20 MG CAPSULE PO SCH (09:01)
[2022-12-30] MEDS: metoPROLOL SUCCINATE 25 MG TAB.SR.24H (FP) PO SCH (09:03)
[2022-12-30] MEDS: PERPHENAZINE 4 MG TABLET PO SCH (09:05)
[2022-12-30 09:06] LABS: MCH 33.9 pg (25.7-33.7); MCHC 34.2 g/dl (32.0-36.0); MEAN CELL VOLUME 99.1 fl (80-96); MEAN PLT VOLUME 7.9 fl (7.5-11.1); PLATELET COUNT 255 10^3/uL (134-434); RBC 3.53 M/mm3 (3.60-5.2); RDW 15.1 % (11.6-15.6); WHITE BLOOD COUNT 8.7 K/mm3 (4.0-10.0)
[2022-12-30 09:33] LABS: CALCIUM 8.2 mg/dL (8.5-10.1)
[2022-12-30 09:34] LABS: ALBUMIN 3.1 g/dl (3.4-5.0); BLOOD UREA NITROGEN 5.6 mg/dL (7-18); MAGNESIUM 1.9 mg/dL (1.8-2.4)
[2022-12-30 09:37] LABS: CREATININE 0.7 mg/dL (0.55-1.3)
[2022-12-30 09:38] LABS: ANISOCYTOSIS 0; BILIRUBIN,TOTAL 0.6 mg/dL (0.2-1); HELMET CELLS 0; HOWELL-JOLLY BODIES 0; MACROCYTOSIS 0; OVALOCYTE 0; ROULEAU 0; SICKELED CELLS 0; TARGET CELLS 0; TEAR DROP CELLS 0; TOT PROT 5.7 g/dl (6.4-8.2); TOXIC GRANULATION 0
[2022-12-30] MEDS ORDERED: MULTIVITAMINS (DAILY MVI) TABLET (FP) PO SCH (10:00)
[2022-12-30] MEDS ORDERED: MELATONIN 1 MG TABLET PO SCH (22:00)
== END 2022-12-30 11:04 | disposition home or self-care (01) ==
LOC: JASUSAT 04:07 → J3W 13:25 → JASUSAT 12-30 11:04
PROVIDERS: ATTEND Obstetrics & Gynecology
PROC: 0U598ZZ Destruction of Uterus, Via Natural or Artificial Opening Endoscopic (ICD-10-PCS; principal; 2022-12-29 10:00)
DX: D25.0 Submucous leiomyoma of uterus (principal)
CPT/HCPCS: 36415; 80053; 80177; 80307; 81003; 81025; 82962; 83735; 85025; 87086; 88305-TC; 94760

== ENCOUNTER 2023-01-27 11:07 | Observation (INO) | payer OTHER ==
[2023-01-27 13:08] LABS: BASO % 0.7 % (0-2.0); EOS % 14.3 % (0-4.5); HEMATOCRIT 36.2 % (32.4-45.2); HEMOGLOBIN 12.5 GM/dL (10.7-15.3); LYMPH % 42.8 % (8-40); MCH 34.1 pg (25.7-33.7); MCHC 34.6 g/dl (32.0-36.0); MEAN CELL VOLUME 98.4 fl (80-96); MEAN PLT VOLUME 7.6 fl (7.5-11.1); MONO % 5.3 % (3.8-10.2); NEUT % 36.9 % (42.8-82.8); PLATELET COUNT 331 10^3/uL (134-434); RBC 3.68 M/mm3 (3.60-5.2); RDW 15.8 % (11.6-15.6); WHITE BLOOD COUNT 4.4 K/mm3 (4.0-10.0)
[2023-01-27 13:15] LABS: INR 1.12 (0.83-1.09)
[2023-01-27 13:17] LABS: ACTIVATED PTT 28.9 SECONDS (25.2-36.5)
[2023-01-27 13:26] LABS: CHLORIDE 106 mmol/L (98-107); SODIUM 139 mmol/L (136-145)
[2023-01-27 13:28] LABS: ALBUMIN 3.5 g/dl (3.4-5.0); BLOOD UREA NITROGEN 9.8 mg/dL (7-18); CALCIUM 8.7 mg/dL (8.5-10.1); CO2 29 mmol/L (21-32); GLUCOSE,RANDOM 68 mg/dL (74-106)
[2023-01-27 13:31] LABS: CREATININE 0.6 mg/dL (0.55-1.3); SGOT/AST 82 U/L (15-37)
[2023-01-27 13:32] LABS: BILIRUBIN,TOTAL 0.5 mg/dL (0.2-1); SGPT/ALT 64 U/L (13-61); TOT PROT 7.5 g/dl (6.4-8.2)
[2023-01-27 13:33] LABS: ALK PHOS 80 U/L (45-117)
[2023-01-27 13:40] LABS: ANION GAP 4 MMOL/L (8-16); POTASSIUM 6.1 mmol/L (3.5-5.1)
[2023-01-27 14:19] LABS: URINE APPEARANCE CLEAR; URINE BILIRUBIN NEGATIVE (NEGATIVE); URINE COLOR YELLOW; URINE GLUCOSE (UA) NEGATIVE (NEGATIVE); URINE KETONE NEGATIVE (NEGATIVE); URINE LEUK ESTERASE NEGATIVE (NEGATIVE); URINE NITRITE NEGATIVE (NEGATIVE); URINE PROTEIN NEGATIVE (NEGATIVE); URINE UROBILINOGEN 0.2 mg/dL (0.2-1.0)
[2023-01-27 14:44] LABS: POTASSIUM 4.9 mmol/L (3.5-5.1)
[2023-01-27 14:46] LABS: CALCIUM 8.1 mg/dL (8.5-10.1)
[2023-01-27 14:47] LABS: BLOOD UREA NITROGEN 9.6 mg/dL (7-18)
[2023-01-27 14:49] LABS: CREATININE 0.5 mg/dL (0.55-1.3)
[2023-01-27] MEDS ORDERED: levETIRAcetam 500 MG/5 ML INJECTION VIAL IVPB ONE ×2 (15:32→16:14)
[2023-01-27] MEDS ORDERED: clonazePAM 0.5 MG TABLET PO PRN (16:53)
[2023-01-27] MEDS ORDERED: ALBUTEROL SO4 HFA INHALER IH PRN (16:53)
[2023-01-27] MEDS ORDERED: CIPROFLOXACIN 500 MG TABLET (RESTRICTED TO ID) PO SCH (22:00)
[2023-01-27] MEDS ORDERED: CIPROFLOXACIN HCL PO SCH (22:00)
[2023-01-27] MEDS: ZOLPIDEM TARTRATE 5 MG TABLET PO SCH (23:07)
[2023-01-27] MEDS: levETIRAcetam 500 MG TABLET (FP) PO SCH (23:07)
[2023-01-27] MEDS: ATORVASTATIN CA 20 MG TABLET (FP) PO SCH (23:07)
[2023-01-28] MEDS ORDERED: ACETAMINOPHEN 325 MG TABLET (FP) PO ONE (02:51)
[2023-01-28] MEDS: INSULIN SLIDING SCALE (NOVOLOG) 1 VIAL SQ SCH ×3 (06:37→16:34)
[2023-01-28 08:07] LABS: BASO % 1.3 % (0-2.0); EOS % 17.4 % (0-4.5); HEMATOCRIT 34.7 % (32.4-45.2); LYMPH % 30.7 % (8-40); MCHC 34.5 g/dl (32.0-36.0); MEAN CELL VOLUME 98.4 fl (80-96); MONO % 4.8 % (3.8-10.2); NEUT % 45.8 % (42.8-82.8); PLATELET COUNT 321 10^3/uL (134-434); RBC 3.52 M/mm3 (3.60-5.2); RDW 15.1 % (11.6-15.6); WHITE BLOOD COUNT 4.9 K/mm3 (4.0-10.0)
[2023-01-28 08:41] LABS: POTASSIUM 3.7 mmol/L (3.5-5.1)
[2023-01-28 08:46] LABS: BLOOD UREA NITROGEN 9.3 mg/dL (7-18); CALCIUM 8.5 mg/dL (8.5-10.1)
[2023-01-28 08:51] LABS: CREATININE 0.7 mg/dL (0.55-1.3)
[2023-01-28] MEDS: levETIRAcetam 500 MG TABLET (FP) PO SCH ×2 (09:42→21:12)
[2023-01-28] MEDS: PANTOPRAZOLE 40 MG TABLET PO SCH (09:42)
[2023-01-28] MEDS: FLUoxetine HCL 20 MG CAPSULE PO SCH (09:44)
[2023-01-28] MEDS: BENZTROPINE MESYLATE 1 MG TABLET PO SCH (11:33)
[2023-01-28 19:38] VITALS: RESP 18
[2023-01-28] MEDS: ZOLPIDEM TARTRATE 5 MG TABLET PO SCH (21:12)
[2023-01-28] MEDS: ATORVASTATIN CA 20 MG TABLET (FP) PO SCH (21:12)
[2023-01-29] MEDS: INSULIN SLIDING SCALE (NOVOLOG) 1 VIAL SQ SCH ×3 (06:01→16:26)
[2023-01-29] MEDS: FLUoxetine HCL 20 MG CAPSULE PO SCH (09:34)
[2023-01-29] MEDS: levETIRAcetam 500 MG TABLET (FP) PO SCH (09:34)
[2023-01-29] MEDS: PANTOPRAZOLE 40 MG TABLET PO SCH (09:34)
[2023-01-29] MEDS: BENZTROPINE MESYLATE 1 MG TABLET PO SCH (09:34)
[2023-01-29 10:49] VITALS: PULSE 72
[2023-01-29 10:51] VITALS: BMI 17.2
[2023-01-29] MEDS ORDERED: POLYETHYLENE GLYCOL (HEALTHYLAX) 3350 17 GM PACKET PO SCH (15:14)
[2023-01-29 15:27] VITALS: BP 105/67; TEMP 97.7
[2023-01-29] MEDS ORDERED: METOCLOPRAMIDE HCL INJECTION 10 MG/2 ML VIAL IVPUSH PRN (15:52)
[2023-01-29] MEDS ORDERED: SENNOSIDES 8.6MG TABLET (FP) PO SCH (22:00)
== END 2023-01-29 18:19 | disposition home or self-care (01) ==
LOC: JER 11:07 → JERBED 15:42 → UNDOADMOB 15:42 → INTOOBSV 15:42 → JERBED 17:01 → J5S 18:54
PROVIDERS: ADMIT Internal Medicine
PROC: 3E033GC Introduction of Other Therapeutic Substance into Peripheral Vein, Percutaneous Approach (ICD-10-PCS; principal; 2023-01-27)
DX: G40.909 Epilepsy, unspecified, not intractable, without status epilepticus (principal); S09.90XA Unspecified injury of head, initial encounter; W18.39XA Other fall on same level, initial encounter; Y93.9 Activity, unspecified; Y92.9 Unspecified place or not applicable; R63.4 Abnormal weight loss; Z68.1 Body mass index [BMI] 19.9 or less, adult; R10.13 Epigastric pain; E11.9 Type 2 diabetes mellitus without complications; Z85.038 Personal history of other malignant neoplasm of large intestine; Z79.84 Long term (current) use of oral hypoglycemic drugs; I10 Essential (primary) hypertension; F99 Mental disorder, not otherwise specified; I69.351 Hemiplegia and hemiparesis following cerebral infarction affecting right dominant side; K21.9 Gastro-esophageal reflux disease without esophagitis; F43.10 Post-traumatic stress disorder, unspecified; F20.9 Schizophrenia, unspecified
CPT/HCPCS: 0241U-QW; 36415; 70450-TC; 70553-TC; 72070-TC-FY; 72100-TC-FY; 72125-TC; 74177-TC; 80048; 80053; 80177; 81003; 82962; 84703; 85025; 85610; 85730; 87086; 93005; 93010; 96374; 99285-25; A9579; G0378; Q9967

== ENCOUNTER 2023-03-22 20:51 | Emergency (ER) | payer OTHER ==
[2023-03-22 20:54] VITALS: BP 118/76; PULSE 102; RESP 18; TEMP 97.5; BMI 16.0
[2023-03-22] MEDS ORDERED: FOLIC ACID INJECTION - 1 MG, THIAMINE HCL 100 MG, MULTIVIT INJECTION ADULT 10 ML in SOD... IVPB ONE (21:04)
[2023-03-22 21:34] LABS: HEMATOCRIT 37.7 % (32.4-45.2); HEMOGLOBIN 12.6 GM/dL (10.7-15.3); MCH 33.8 pg (25.7-33.7); MCHC 33.5 g/dl (32.0-36.0); MEAN CELL VOLUME 100.9 fl (80-96); MEAN PLT VOLUME 7.7 fl (7.5-11.1); PLATELET COUNT 296 10^3/uL (134-434); RBC 3.73 M/mm3 (3.60-5.2); RDW 13.4 % (11.6-15.6); WHITE BLOOD COUNT 4.8 K/mm3 (4.0-10.0)
[2023-03-22 21:55] LABS: POTASSIUM 3.9 mmol/L (3.5-5.1)
[2023-03-22 21:57] LABS: CALCIUM 8.4 mg/dL (8.5-10.1)
[2023-03-22 21:58] LABS: ALBUMIN 3.4 g/dl (3.4-5.0); BLOOD UREA NITROGEN 9.8 mg/dL (7-18)
[2023-03-22 22:01] LABS: CREATININE 0.6 mg/dL (0.55-1.3)
[2023-03-22 22:02] LABS: BILIRUBIN,TOTAL 0.6 mg/dL (0.2-1)
[2023-03-22 22:03] LABS: TOT PROT 6.6 g/dl (6.4-8.2)
[2023-03-22] MEDS ORDERED: ACETAMINOPHEN 1000 MG/100 ML BAG IVPB ONE (22:07)
[2023-03-22] MEDS ORDERED: ACETAMINOPHEN INJECTION 100 ML IVPB ONE (22:39)
== END 2023-03-22 23:17 | disposition home or self-care (01) ==
LOC: JER 20:51
PROC: 3E033GC Introduction of Other Therapeutic Substance into Peripheral Vein, Percutaneous Approach (ICD-10-PCS; principal; 2023-03-22)
PROC: 3E033GC Introduction of Other Therapeutic Substance into Peripheral Vein, Percutaneous Approach (ICD-10-PCS; 2023-03-22)
PROC: 3E033GC Introduction of Other Therapeutic Substance into Peripheral Vein, Percutaneous Approach (ICD-10-PCS; 2023-03-22)
PROC: 3E033GC Introduction of Other Therapeutic Substance into Peripheral Vein, Percutaneous Approach (ICD-10-PCS; 2023-03-22)
PROC: 3E033GC Introduction of Other Therapeutic Substance into Peripheral Vein, Percutaneous Approach (ICD-10-PCS; 2023-03-22)
PROC: 3E033GC Introduction of Other Therapeutic Substance into Peripheral Vein, Percutaneous Approach (ICD-10-PCS; 2023-03-22)
PROC: 3E033GC Introduction of Other Therapeutic Substance into Peripheral Vein, Percutaneous Approach (ICD-10-PCS; 2023-03-22)
PROC: 3E033GC Introduction of Other Therapeutic Substance into Peripheral Vein, Percutaneous Approach (ICD-10-PCS; 2023-03-22)
PROC: 3E033NZ Introduction of Analgesics, Hypnotics, Sedatives into Peripheral Vein, Percutaneous Approach (ICD-10-PCS; 2023-03-22)
DX: R51.9 Headache, unspecified (principal); M54.50 Low back pain, unspecified; Y04.0XXA Assault by unarmed brawl or fight, initial encounter
CPT/HCPCS: 36415; 70450-TC; 70486-TC; 80053; 80307; 84703; 85027; 99284-25

== ENCOUNTER → 2023-04-27 | Day surgery (SDC) | payer OTHER ==
[2023-04-23 16:35] VITALS: BMI 16.9
[2023-04-27 07:48] VITALS: BP 130/85; PULSE 78; RESP 18; TEMP 98.4
== END | disposition home or self-care (01) ==
LOC: JASU-ENDO 04:18
PROVIDERS: ATTEND Internal Medicine Gastroenterology
DX: Z53.8 Procedure and treatment not carried out for other reasons (principal)
CPT/HCPCS: 81025

== ENCOUNTER 2023-06-29 04:35 | Day surgery (SDC) | payer OTHER ==
[2023-06-29] MEDS ORDERED: clonazePAM 0.5 MG TABLET PO PRN (10:31)
[2023-06-29] MEDS: levETIRAcetam 500 MG TABLET (FP) PO SCH ×2 (10:45→21:41)
[2023-06-29] MEDS: ACETAMINOPHEN 500 MG TABLET (FP) PO PRN (14:51)
[2023-06-29] MEDS: INSULIN SLIDING SCALE (NOVOLOG) 1 VIAL SQ SCH (16:55)
[2023-06-29] MEDS: PANTOPRAZOLE 40 MG TABLET PO SCH (18:23)
[2023-06-29] MEDS: ATORVASTATIN CA 20 MG TABLET (FP) PO SCH (21:41)
[2023-06-29] MEDS: traZODone HCL 100 MG TABLET (FP) PO SCH (21:41)
[2023-06-29] MEDS ORDERED: PATIENT'S OWN MEDICATION (NON-FORMULARY) (Omeprazole 20 MG Capsule.Dr) PO SCH (22:00)
[2023-06-30] MEDS: INSULIN SLIDING SCALE (NOVOLOG) 1 VIAL SQ SCH ×3 (06:54→17:13)
[2023-06-30] MEDS: PANTOPRAZOLE 40 MG TABLET PO SCH (09:10)
[2023-06-30] MEDS: OLANZapine 10 MG TABLET PO SCH (09:10)
[2023-06-30] MEDS: FOLIC ACID 1 MG TABLET (FP) PO SCH (09:10)
[2023-06-30] MEDS: SENNOSIDES 8.6MG TABLET (FP) PO SCH (09:11)
[2023-06-30] MEDS: ACETAMINOPHEN 500 MG TABLET (FP) PO PRN ×2 (09:11→22:03)
[2023-06-30] MEDS: levETIRAcetam 500 MG TABLET (FP) PO SCH ×2 (09:12→22:04)
[2023-06-30] MEDS: FLUoxetine HCL 20 MG CAPSULE PO SCH (09:12)
[2023-06-30 10:03] LABS: BASO % 1.2 % (0-2.0); EOS % 7.4 % (0-4.5); HEMATOCRIT 34.5 % (32.4-45.2); HEMOGLOBIN 11.7 GM/dL (10.7-15.3); LYMPH % 41.5 % (8-40); MCHC 33.8 g/dl (32.0-36.0); MEAN CELL VOLUME 100.5 fl (80-96); MEAN PLT VOLUME 7.8 fl (7.5-11.1); MONO % 8.2 % (3.8-10.2); NEUT % 41.7 % (42.8-82.8); PLATELET COUNT 295 10^3/uL (134-434); RBC 3.43 M/mm3 (3.60-5.2); RDW 13.2 % (11.6-15.6); WHITE BLOOD COUNT 3.6 K/mm3 (4.0-10.0)
[2023-06-30 10:04] LABS: INR 1.03 (0.83-1.09)
[2023-06-30 10:07] LABS: ACTIVATED PTT 27.6 SECONDS (25.2-36.5)
[2023-06-30 10:26] LABS: POTASSIUM 4.3 mmol/L (3.5-5.1)
[2023-06-30 10:28] LABS: ALBUMIN 3.2 g/dl (3.4-5.0); CALCIUM 8.5 mg/dL (8.5-10.1)
[2023-06-30 10:29] LABS: BLOOD UREA NITROGEN 4.2 mg/dL (7-18)
[2023-06-30 10:32] LABS: CREATININE 0.7 mg/dL (0.55-1.3)
[2023-06-30 10:33] LABS: BILIRUBIN,TOTAL 0.6 mg/dL (0.2-1)
[2023-06-30] MEDS: POLYETHYLENE GLYCOL (HEALTHYLAX) 3350 17 GM PACKET PO SCH ×2 (12:01→22:03)
[2023-06-30] MEDS: ATORVASTATIN CA 20 MG TABLET (FP) PO SCH (22:04)
[2023-06-30] MEDS: traZODone HCL 100 MG TABLET (FP) PO SCH (22:04)
[2023-07-01 03:29] VITALS: RESP 18
[2023-07-01] MEDS: INSULIN SLIDING SCALE (NOVOLOG) 1 VIAL SQ SCH ×3 (06:32→17:00)
[2023-07-01] MEDS: POLYETHYLENE GLYCOL (HEALTHYLAX) 3350 17 GM PACKET PO SCH (09:07)
[2023-07-01] MEDS: FLUoxetine HCL 20 MG CAPSULE PO SCH (09:07)
[2023-07-01] MEDS: levETIRAcetam 500 MG TABLET (FP) PO SCH (09:08)
[2023-07-01] MEDS: PANTOPRAZOLE 40 MG TABLET PO SCH (09:08)
[2023-07-01] MEDS: FOLIC ACID 1 MG TABLET (FP) PO SCH (09:08)
[2023-07-01] MEDS: OLANZapine 10 MG TABLET PO SCH (09:08)
[2023-07-01] MEDS: SENNOSIDES 8.6MG TABLET (FP) PO SCH (09:09)
[2023-07-01 10:24] LABS: BASO % 1.2 % (0-2.0); HEMATOCRIT 37.2 % (32.4-45.2); HEMOGLOBIN 12.8 GM/dL (10.7-15.3); LYMPH % 39.3 % (8-40); MCHC 34.4 g/dl (32.0-36.0); MEAN PLT VOLUME 7.9 fl (7.5-11.1); MONO % 6.1 % (3.8-10.2); NEUT % 45.4 % (42.8-82.8); PLATELET COUNT 325 10^3/uL (134-434); RBC 3.76 M/mm3 (3.60-5.2); RDW 13.4 % (11.6-15.6); WHITE BLOOD COUNT 3.9 K/mm3 (4.0-10.0)
[2023-07-01 10:39] LABS: POTASSIUM 4.2 mmol/L (3.5-5.1)
[2023-07-01 10:45] LABS: ALBUMIN 3.5 g/dl (3.4-5.0); BLOOD UREA NITROGEN 5.6 mg/dL (7-18); CALCIUM 8.8 mg/dL (8.5-10.1); MAGNESIUM 2.2 mg/dL (1.8-2.4)
[2023-07-01 10:48] LABS: CREATININE 0.8 mg/dL (0.55-1.3); PHOSPHOROUS 3.4 mg/dL (2.5-4.9)
[2023-07-01 10:50] LABS: BILIRUBIN,TOTAL 0.5 mg/dL (0.2-1); TOT PROT 6.8 g/dl (6.4-8.2)
[2023-07-01 13:50] VITALS: BP 92/55; PULSE 85; TEMP 97.5
[2023-07-01] MEDS ORDERED: DOCUSATE SODIUM 100 MG CAPSULE (FP) PO SCH (15:45)
[2023-07-02 17:12] VITALS: BMI 18.4
== END 2023-07-01 18:41 | disposition home or self-care (01) ==
LOC: JASU-ENDO 04:35 → SUATTDRO 04:35 → JASUSAT 04:35 → J6S 14:14 → JASUSAT 07-01 18:41
PROVIDERS: ATTEND Internal Medicine
PROC: 0DJD8ZZ Inspection of Lower Intestinal Tract, Via Natural or Artificial Opening Endoscopic (ICD-10-PCS; 2023-06-29)
PROC: 0DB68ZX Excision of Stomach, Via Natural or Artificial Opening Endoscopic, Diagnostic (ICD-10-PCS; 2023-06-29)
PROC: 0DJD8ZZ Inspection of Lower Intestinal Tract, Via Natural or Artificial Opening Endoscopic (ICD-10-PCS; principal; 2023-06-29 08:00)
DX: Z12.11 Encounter for screening for malignant neoplasm of colon (principal); K64.8 Other hemorrhoids; K29.50 Unspecified chronic gastritis without bleeding; Z98.0 Intestinal bypass and anastomosis status; K91.61 Intraoperative hemorrhage and hematoma of a digestive system organ or structure complicating a digestive system procedure; Y84.8 Other medical procedures as the cause of abnormal reaction of the patient, or of later complication, without mention of misadventure at the time of the procedure; Y73.8 Miscellaneous gastroenterology and urology devices associated with adverse incidents, not elsewhere classified; Y92.538 Other ambulatory health services establishments as the place of occurrence of the external cause
CPT/HCPCS: 43239; G0121; 36415; 80053; 81025; 82962; 83036; 83735; 84100; 85025; 85610; 85730; 86850; 86900; 86901

== ENCOUNTER 2023-08-26 21:10 | Observation (INO) | payer OTHER ==
[2023-08-26] MEDS ORDERED: SODIUM CHLORIDE 0.9% 500 ML INFUS.BAG IV ONE (22:23)
[2023-08-26] MEDS ORDERED: ACETAMINOPHEN 1000 MG/100 ML BAG IVPB ONE (22:25)
[2023-08-26] MEDS ORDERED: ACETAMINOPHEN INJECTION 100 ML IVPB ONE (22:29)
[2023-08-26 23:00] LABS: BASO % 0.5 % (0-2.0); HEMATOCRIT 32.5 % (32.4-45.2); LYMPH % 55.2 % (8-40); MCH 32.6 pg (25.7-33.7); MCHC 33.9 g/dl (32.0-36.0); MEAN PLT VOLUME 7.2 fl (7.5-11.1); MONO % 8.3 % (3.8-10.2); PLATELET COUNT 258 10^3/uL (134-434); RBC 3.39 M/mm3 (3.60-5.2); RDW 13.7 % (11.6-15.6); WHITE BLOOD COUNT 3.5 K/mm3 (4.0-10.0)
[2023-08-26 23:18] LABS: POTASSIUM 3.7 mmol/L (3.5-5.1)
[2023-08-26 23:20] LABS: CALCIUM 7.5 mg/dL (8.5-10.1)
[2023-08-26 23:21] LABS: ALBUMIN 3.1 g/dl (3.4-5.0); BLOOD UREA NITROGEN 7.2 mg/dL (7-18)
[2023-08-26 23:24] LABS: CREATININE 0.5 mg/dL (0.55-1.3)
[2023-08-26 23:26] LABS: BILIRUBIN,TOTAL 0.4 mg/dL (0.2-1)
[2023-08-27 00:55] LABS: URINE APPEARANCE CLEAR; URINE BILIRUBIN NEGATIVE (NEGATIVE); URINE COLOR YELLOW; URINE GLUCOSE (UA) NEGATIVE (NEGATIVE); URINE KETONE NEGATIVE (NEGATIVE); URINE LEUK ESTERASE NEGATIVE (NEGATIVE); URINE NITRITE NEGATIVE (NEGATIVE); URINE PROTEIN NEGATIVE (NEGATIVE); URINE UROBILINOGEN 0.2 mg/dL (0.2-1.0)
[2023-08-27 01:02] LABS: INR 0.97 (0.83-1.09); PROTHROMBIN TIME (PATIENT) 11.2 SEC (9.7-13.0)
[2023-08-27] MEDS ORDERED: methylPREDNISolone NA SUCC 125 MG/2 ML VIAL IVPUSH ONE (03:39)
[2023-08-27] MEDS ORDERED: methylPREDNISolone NA SUCC 125 MG/2 ML VIAL ONE (04:06)
[2023-08-27] MEDS ORDERED: ONDANSETRON 4 MG/2 ML VIAL IVPUSH PRN (08:25)
[2023-08-27] MEDS: metoPROLOL SUCCINATE 25 MG TAB.SR.24H (FP) PO SCH (10:41)
[2023-08-27] MEDS: levETIRAcetam 250 MG TABLET PO SCH ×2 (10:41→21:04)
[2023-08-27] MEDS: ASPIRIN 81 MG CHEWABLE TABLETS PO SCH (10:41)
[2023-08-27] MEDS: ENOXAPARIN NA (PORCINE) 40 MG/0.4 ML DISP.SYRIN SQ SCH (10:41)
[2023-08-27] MEDS: PANTOPRAZOLE SODIUM 40 MG VIAL IVPUSH SCH (10:41)
[2023-08-27] MEDS: FLUoxetine HCL 20 MG CAPSULE PO SCH (10:41)
[2023-08-27] MEDS: amLODIPine BESYLATE 2.5 MG TABLET (FP) PO SCH (10:41)
[2023-08-27] MEDS: NICOTINE 7 MG/24 HOURS TOPICAL PATCH TD SCH (10:41)
[2023-08-27 11:21] LABS: BASO % 0.4 % (0-2.0); EOS % 0.1 % (0-4.5); HEMATOCRIT 35.3 % (32.4-45.2); HEMOGLOBIN 11.5 GM/dL (10.7-15.3); LYMPH % 12.1 % (8-40); MCHC 32.5 g/dl (32.0-36.0); MEAN CELL VOLUME 98.5 fl (80-96); MEAN PLT VOLUME 8.3 fl (7.5-11.1); MONO % 1.8 % (3.8-10.2); NEUT % 85.6 % (42.8-82.8); PLATELET COUNT 294 10^3/uL (134-434); RBC 3.58 M/mm3 (3.60-5.2); RDW 13.5 % (11.6-15.6); WHITE BLOOD COUNT 3.1 K/mm3 (4.0-10.0)
[2023-08-27 11:46] LABS: POTASSIUM 3.9 mmol/L (3.5-5.1)
[2023-08-27 11:48] LABS: CALCIUM 7.7 mg/dL (8.5-10.1)
[2023-08-27 11:49] LABS: ALBUMIN 3.2 g/dl (3.4-5.0)
[2023-08-27 11:51] LABS: CREATININE 0.5 mg/dL (0.55-1.3)
[2023-08-27 11:53] LABS: BILIRUBIN,TOTAL 0.7 mg/dL (0.2-1); TOT PROT 6.3 g/dl (6.4-8.2)
[2023-08-27] MEDS: INSULIN SLIDING SCALE (NOVOLOG) 1 VIAL SQ SCH ×3 (12:15→21:45)
[2023-08-27 14:31] VITALS: BMI 17.9
[2023-08-27] MEDS: ACETAMINOPHEN 325 MG TABLET (FP) PO PRN (20:52)
[2023-08-27] MEDS: ATORVASTATIN CA 40 MG TABLET (FP) PO SCH (21:04)
[2023-08-27] MEDS: traZODone HCL 50 MG TABLET (FP) PO SCH (21:05)
[2023-08-27] MEDS: ZOLPIDEM TARTRATE 5 MG TABLET PO PRN (21:05)
[2023-08-28] MEDS: INSULIN SLIDING SCALE (NOVOLOG) 1 VIAL SQ SCH ×4 (06:39→22:50)
[2023-08-28 09:10] LABS: BASO % 0.6 % (0-2.0); EOS % 1.3 % (0-4.5); HEMATOCRIT 32.9 % (32.4-45.2); HEMOGLOBIN 11.3 GM/dL (10.7-15.3); LYMPH % 41.2 % (8-40); MCH 32.8 pg (25.7-33.7); MCHC 34.2 g/dl (32.0-36.0); MEAN CELL VOLUME 95.8 fl (80-96); MEAN PLT VOLUME 7.7 fl (7.5-11.1); MONO % 7.3 % (3.8-10.2); NEUT % 49.6 % (42.8-82.8); PLATELET COUNT 302 10^3/uL (134-434); RBC 3.44 M/mm3 (3.60-5.2); RDW 13.6 % (11.6-15.6); WHITE BLOOD COUNT 5.1 K/mm3 (4.0-10.0)
[2023-08-28 09:26] LABS: CHOLESTEROL 136 mg/dL (50-200)
[2023-08-28 09:27] LABS: LDL CHOLESTEROL (ONLY SJRH) 44 mg/dL (5-100)
[2023-08-28 09:28] LABS: POTASSIUM 4.1 mmol/L (3.5-5.1)
[2023-08-28 09:29] LABS: HDL CHOLESTEROL 80 mg/dL (40-60)
[2023-08-28 09:30] LABS: CALCIUM 7.9 mg/dL (8.5-10.1)
[2023-08-28 09:31] LABS: ALBUMIN 3.1 g/dl (3.4-5.0); BLOOD UREA NITROGEN 8.9 mg/dL (7-18); MAGNESIUM 2.1 mg/dL (1.8-2.4)
[2023-08-28 09:34] LABS: CREATININE 0.7 mg/dL (0.55-1.3); PHOSPHOROUS 2.4 mg/dL (2.5-4.9)
[2023-08-28] MEDS: NICOTINE 7 MG/24 HOURS TOPICAL PATCH TD SCH (09:35)
[2023-08-28] MEDS: FLUoxetine HCL 20 MG CAPSULE PO SCH (09:35)
[2023-08-28 09:36] LABS: BILIRUBIN,TOTAL 0.6 mg/dL (0.2-1)
[2023-08-28] MEDS: levETIRAcetam 250 MG TABLET PO SCH ×2 (09:36→22:46)
[2023-08-28] MEDS: metoPROLOL SUCCINATE 25 MG TAB.SR.24H (FP) PO SCH (09:36)
[2023-08-28] MEDS: amLODIPine BESYLATE 2.5 MG TABLET (FP) PO SCH (09:36)
[2023-08-28] MEDS: ASPIRIN 81 MG CHEWABLE TABLETS PO SCH (09:36)
[2023-08-28] MEDS: ENOXAPARIN NA (PORCINE) 40 MG/0.4 ML DISP.SYRIN SQ SCH (09:36)
[2023-08-28] MEDS: PANTOPRAZOLE SODIUM 40 MG VIAL IVPUSH SCH (09:36)
[2023-08-28] MEDS: ACETAMINOPHEN 325 MG TABLET (FP) PO PRN (11:32)
[2023-08-28] MEDS ORDERED: POTASSIUM PHOSPHATE 30 MM in DEXTROSE 5%-WATER - 500 ML IVPB ONE (20:58)
[2023-08-28] MEDS: POLYETHYLENE GLYCOL (HEALTHYLAX) 3350 17 GM PACKET PO SCH (22:43)
[2023-08-28] MEDS: traZODone HCL 50 MG TABLET (FP) PO SCH (22:45)
[2023-08-28] MEDS: ZOLPIDEM TARTRATE 5 MG TABLET PO PRN (22:46)
[2023-08-28] MEDS: ATORVASTATIN CA 40 MG TABLET (FP) PO SCH (22:46)
[2023-08-29] MEDS: INSULIN SLIDING SCALE (NOVOLOG) 1 VIAL SQ SCH ×4 (06:02→22:25)
[2023-08-29 07:36] LABS: EOS % 2.9 % (0-4.5); HEMATOCRIT 32.6 % (32.4-45.2); HEMOGLOBIN 10.8 GM/dL (10.7-15.3); LYMPH % 54.4 % (8-40); MCH 32.8 pg (25.7-33.7); MCHC 33.3 g/dl (32.0-36.0); MEAN CELL VOLUME 98.6 fl (80-96); MEAN PLT VOLUME 8.1 fl (7.5-11.1); MONO % 6.1 % (3.8-10.2); NEUT % 35.6 % (42.8-82.8); PLATELET COUNT 305 10^3/uL (134-434); RDW 13.3 % (11.6-15.6)
[2023-08-29 08:00] LABS: POTASSIUM 4.3 mmol/L (3.5-5.1)
[2023-08-29 08:03] LABS: CALCIUM 8.2 mg/dL (8.5-10.1)
[2023-08-29 08:04] LABS: ALBUMIN 3.1 g/dl (3.4-5.0); BLOOD UREA NITROGEN 8.4 mg/dL (7-18)
[2023-08-29 08:07] LABS: CREATININE 0.6 mg/dL (0.55-1.3); PHOSPHOROUS 6.3 mg/dL (2.5-4.9)
[2023-08-29 08:08] LABS: BILIRUBIN,TOTAL 0.5 mg/dL (0.2-1); TOT PROT 6.1 g/dl (6.4-8.2)
[2023-08-29] MEDS ORDERED: PARoxetine HCL 20 MG TABLET PO SCH (10:00)
[2023-08-29] MEDS: levETIRAcetam 250 MG TABLET PO SCH ×2 (11:01→22:10)
[2023-08-29] MEDS: FLUoxetine HCL 20 MG CAPSULE PO SCH (11:01)
[2023-08-29] MEDS: NICOTINE 7 MG/24 HOURS TOPICAL PATCH TD SCH (11:01)
[2023-08-29] MEDS: ENOXAPARIN NA (PORCINE) 40 MG/0.4 ML DISP.SYRIN SQ SCH (11:02)
[2023-08-29] MEDS: ASPIRIN 81 MG CHEWABLE TABLETS PO SCH (11:02)
[2023-08-29] MEDS: amLODIPine BESYLATE 2.5 MG TABLET (FP) PO SCH (11:02)
[2023-08-29] MEDS: PANTOPRAZOLE 40 MG TABLET PO SCH (11:02)
[2023-08-29] MEDS: metoPROLOL SUCCINATE 25 MG TAB.SR.24H (FP) PO SCH (11:02)
[2023-08-29] MEDS: POLYETHYLENE GLYCOL (HEALTHYLAX) 3350 17 GM PACKET PO SCH ×2 (11:02→22:10)
[2023-08-29] MEDS ORDERED: BISACODYL 5 MG TABLET.DR (FP) PO ONE (14:00)
[2023-08-29] MEDS: ACETAMINOPHEN 325 MG TABLET (FP) PO PRN (14:15)
[2023-08-29] MEDS ORDERED: ACETAMINOPHEN 1000 MG/100 ML BAG IVPB ONE (16:19)
[2023-08-29] MEDS ORDERED: MAGNESIUM CITRATE 300 ML BOTTLE PO ONE (16:20)
[2023-08-29] MEDS: ATORVASTATIN CA 40 MG TABLET (FP) PO SCH (22:10)
[2023-08-29] MEDS: traZODone HCL 50 MG TABLET (FP) PO SCH (22:10)
[2023-08-29] MEDS: ZOLPIDEM TARTRATE 5 MG TABLET PO PRN (22:10)
[2023-08-30] MEDS: INSULIN SLIDING SCALE (NOVOLOG) 1 VIAL SQ SCH ×4 (06:48→21:47)
[2023-08-30 07:44] LABS: HEMATOCRIT 34.4 % (32.4-45.2); HEMOGLOBIN 11.4 GM/dL (10.7-15.3); MCHC 33.2 g/dl (32.0-36.0); MEAN CELL VOLUME 96.6 fl (80-96); MEAN PLT VOLUME 7.9 fl (7.5-11.1); PLATELET COUNT 332 10^3/uL (134-434); RBC 3.56 M/mm3 (3.60-5.2); RDW 13.3 % (11.6-15.6); WHITE BLOOD COUNT 3.3 K/mm3 (4.0-10.0)
[2023-08-30 08:01] LABS: POTASSIUM 3.8 mmol/L (3.5-5.1)
[2023-08-30 08:06] LABS: CALCIUM 8.2 mg/dL (8.5-10.1)
[2023-08-30 08:07] LABS: ALBUMIN 3.2 g/dl (3.4-5.0); BLOOD UREA NITROGEN 8.5 mg/dL (7-18); MAGNESIUM 2.6 mg/dL (1.8-2.4)
[2023-08-30 08:10] LABS: CREATININE 0.6 mg/dL (0.55-1.3); PHOSPHOROUS 3.5 mg/dL (2.5-4.9)
[2023-08-30 08:11] LABS: BILIRUBIN,TOTAL 0.9 mg/dL (0.2-1); TOT PROT 6.1 g/dl (6.4-8.2)
[2023-08-30] MEDS: levETIRAcetam 250 MG TABLET PO SCH ×2 (11:04→21:46)
[2023-08-30] MEDS: ASPIRIN 81 MG CHEWABLE TABLETS PO SCH (11:04)
[2023-08-30] MEDS: metoPROLOL SUCCINATE 25 MG TAB.SR.24H (FP) PO SCH (11:05)
[2023-08-30] MEDS: FLUoxetine HCL 20 MG CAPSULE PO SCH (11:05)
[2023-08-30] MEDS: PANTOPRAZOLE 40 MG TABLET PO SCH (11:05)
[2023-08-30] MEDS: NICOTINE 7 MG/24 HOURS TOPICAL PATCH TD SCH (11:06)
[2023-08-30] MEDS: POLYETHYLENE GLYCOL (HEALTHYLAX) 3350 17 GM PACKET PO SCH ×2 (11:06→21:47)
[2023-08-30] MEDS: amLODIPine BESYLATE 2.5 MG TABLET (FP) PO SCH (11:06)
[2023-08-30] MEDS: ENOXAPARIN NA (PORCINE) 40 MG/0.4 ML DISP.SYRIN SQ SCH (11:07)
[2023-08-30] MEDS: ACETAMINOPHEN 325 MG TABLET (FP) PO PRN (14:54)
[2023-08-30] MEDS: traZODone HCL 50 MG TABLET (FP) PO SCH (21:46)
[2023-08-30] MEDS: ZOLPIDEM TARTRATE 5 MG TABLET PO PRN (21:46)
[2023-08-30] MEDS: ATORVASTATIN CA 40 MG TABLET (FP) PO SCH (21:46)
[2023-08-31] MEDS: INSULIN SLIDING SCALE (NOVOLOG) 1 VIAL SQ SCH ×2 (06:03→11:41)
[2023-08-31] MEDS: ENOXAPARIN NA (PORCINE) 40 MG/0.4 ML DISP.SYRIN SQ SCH (09:23)
[2023-08-31] MEDS: POLYETHYLENE GLYCOL (HEALTHYLAX) 3350 17 GM PACKET PO SCH (09:23)
[2023-08-31] MEDS: PANTOPRAZOLE 40 MG TABLET PO SCH (09:23)
[2023-08-31] MEDS: levETIRAcetam 250 MG TABLET PO SCH (09:23)
[2023-08-31] MEDS: NICOTINE 7 MG/24 HOURS TOPICAL PATCH TD SCH (09:24)
[2023-08-31] MEDS: ASPIRIN 81 MG CHEWABLE TABLETS PO SCH (09:24)
[2023-08-31] MEDS: amLODIPine BESYLATE 2.5 MG TABLET (FP) PO SCH (09:24)
[2023-08-31] MEDS: FLUoxetine HCL 20 MG CAPSULE PO SCH (09:24)
[2023-08-31] MEDS: metoPROLOL SUCCINATE 25 MG TAB.SR.24H (FP) PO SCH (09:24)
[2023-08-31] MEDS: ACETAMINOPHEN 325 MG TABLET (FP) PO PRN (09:44)
[2023-08-31] MEDS ORDERED: BISACODYL 5 MG TABLET.DR (FP) PO ONE (12:36)
[2023-08-31 13:56] VITALS: BP 88/51; PULSE 71; RESP 17; TEMP 97.6
[2023-08-31 13:59] LABS: BASO % 0.6 % (0-2.0); EOS % 2.8 % (0-4.5); HEMATOCRIT 34.5 % (32.4-45.2); HEMOGLOBIN 11.4 GM/dL (10.7-15.3); LYMPH % 39.2 % (8-40); MCH 32.5 pg (25.7-33.7); MCHC 32.9 g/dl (32.0-36.0); MEAN CELL VOLUME 98.6 fl (80-96); MEAN PLT VOLUME 7.9 fl (7.5-11.1); MONO % 7.5 % (3.8-10.2); NEUT % 49.9 % (42.8-82.8); PLATELET COUNT 355 10^3/uL (134-434); RDW 13.4 % (11.6-15.6); WHITE BLOOD COUNT 4.5 K/mm3 (4.0-10.0)
[2023-08-31 14:16] LABS: POTASSIUM 4.7 mmol/L (3.5-5.1)
[2023-08-31 14:18] LABS: CALCIUM 8.2 mg/dL (8.5-10.1)
[2023-08-31 14:19] LABS: ALBUMIN 3.4 g/dl (3.4-5.0); BLOOD UREA NITROGEN 9.5 mg/dL (7-18)
[2023-08-31 14:22] LABS: CREATININE 0.6 mg/dL (0.55-1.3)
[2023-08-31 14:24] LABS: BILIRUBIN,TOTAL 0.5 mg/dL (0.2-1); TOT PROT 6.5 g/dl (6.4-8.2)
== END 2023-08-31 14:12 | disposition home or self-care (01) ==
LOC: JER 21:10 → JERBED 08-27 04:56 → J4S 08-27 08:31
PROVIDERS: ADMIT Internal Medicine; ATTEND Internal Medicine
PROC: 3E033NZ Introduction of Analgesics, Hypnotics, Sedatives into Peripheral Vein, Percutaneous Approach (ICD-10-PCS; principal; 2023-08-27)
PROC: 3E023GC Introduction of Other Therapeutic Substance into Muscle, Percutaneous Approach (ICD-10-PCS; 2023-08-27)
PROC: 3E033GC Introduction of Other Therapeutic Substance into Peripheral Vein, Percutaneous Approach (ICD-10-PCS; 2023-08-27)
PROC: 3E0337Z Introduction of Electrolytic and Water Balance Substance into Peripheral Vein, Percutaneous Approach (ICD-10-PCS; 2023-08-27)
DX: U07.1 COVID-19 (principal); M62.81 Muscle weakness (generalized); G40.909 Epilepsy, unspecified, not intractable, without status epilepticus; F25.9 Schizoaffective disorder, unspecified; Z85.038 Personal history of other malignant neoplasm of large intestine; R20.0 Anesthesia of skin; J45.909 Unspecified asthma, uncomplicated; R51.9 Headache, unspecified; R10.13 Epigastric pain; E11.9 Type 2 diabetes mellitus without complications; I10 Essential (primary) hypertension; Z29.89 Encounter for other specified prophylactic measures; Z72.0 Tobacco use
CPT/HCPCS: 0241U-QW; 36415; 70450-TC; 70551-TC; 71045-TC-FY; 71275-TC; 72141-TC; 76705-TC; 80053; 80061; 80177; 81003; 82378; 82550; 82607; 82746; 82962; 83036; 83735; 84100; 84443; 84484; 84703; 85025; 85027; 85379; 85610; 85730; 87086; 93005; 93010; 96365; 96372; 96375; 96376; 97116-GP; 97161-GP; 99285-25; G0378; Q9967

== ENCOUNTER 2023-11-02 10:53 | Emergency (ER) | payer OTHER ==
[2023-11-02 11:18] VITALS: BP 122/85; PULSE 76; RESP 18; TEMP 98; BMI 20.1
[2023-11-02 12:13] LABS: BASO % 1.4 % (0-2.0); EOS % 2.5 % (0-4.5); HEMATOCRIT 37.6 % (32.4-45.2); HEMOGLOBIN 12.7 GM/dL (10.7-15.3); LYMPH % 24.6 % (8-40); MCH 32.6 pg (25.7-33.7); MCHC 33.7 g/dl (32.0-36.0); MEAN CELL VOLUME 96.9 fl (80-96); MEAN PLT VOLUME 7.2 fl (7.5-11.1); NEUT % 67.5 % (42.8-82.8); PLATELET COUNT 304 10^3/uL (134-434); RBC 3.88 M/mm3 (3.60-5.2); RDW 16.4 % (11.6-15.6); WHITE BLOOD COUNT 6.3 K/mm3 (4.0-10.0)
[2023-11-02 12:16] LABS: EPI CELLS >36 /uL (0-25.1); HYALINE CASTS 7 /uL (0-3.1); PH,URINE 5.5 (5.0-8.0); URINE APPEARANCE TURBID; URINE BACTERIA 1473 /uL (0-1359); URINE BILIRUBIN 2+ (NEGATIVE); URINE COLOR ORANGE; URINE GLUCOSE (UA) NEGATIVE (NEGATIVE); URINE KETONE NEGATIVE (NEGATIVE); URINE LEUK ESTERASE 2+ (NEGATIVE); URINE NITRITE POSITIVE (NEGATIVE); URINE PROTEIN 3+ (NEGATIVE); URINE RBC 4741 /uL (0-23.9); URINE WBC 7815 /uL (0-25.8)
[2023-11-02 12:23] LABS: HCG,QUALITATIVE URINE Negative
[2023-11-02 12:25] LABS: INR 1.12 (0.83-1.09)
[2023-11-02] MEDS ORDERED: IBUPROFEN 600 MG TABLET (FP) PO ONE (12:51)
[2023-11-02] MEDS: IBUPROFEN 600 MG TABLET (FP) PO ONE (12:52)
[2023-11-02 13:38] LABS: POTASSIUM 4.4 mmol/L (3.5-5.1)
[2023-11-02 13:40] LABS: ALBUMIN 3.6 g/dl (3.4-5.0); BLOOD UREA NITROGEN 13.3 mg/dL (7-18); CALCIUM 8.5 mg/dL (8.5-10.1)
[2023-11-02 13:43] LABS: CREATININE 0.8 mg/dL (0.55-1.3)
[2023-11-02 13:45] LABS: BILIRUBIN,TOTAL 0.5 mg/dL (0.2-1); TOT PROT 7.2 g/dl (6.4-8.2)
== END 2023-11-02 14:26 | disposition home or self-care (01) ==
LOC: JER 10:53
DX: N93.8 Other specified abnormal uterine and vaginal bleeding (principal); R42 Dizziness and giddiness
CPT/HCPCS: 36415; 80053; 81003; 84703; 85025; 85610; 86850; 86900; 86901; 99283-25

== ENCOUNTER 2023-12-23 19:48 | Emergency (ER) | payer OTHER ==
[2023-12-23 19:51] VITALS: BP 128/72; PULSE 95; RESP 16; TEMP 97.8; BMI 16.8
[2023-12-23] MEDS ORDERED: ACETAMINOPHEN INJECTION 100 ML IVPB ONE (20:39)
[2023-12-23] MEDS: ACETAMINOPHEN 1000 MG/100 ML BAG IVPB ONE (20:45)
[2023-12-23 20:47] LABS: BASO % 0.7 % (0-2.0); HEMATOCRIT 34.1 % (32.4-45.2); HEMOGLOBIN 11.6 GM/dL (10.7-15.3); LYMPH % 21.8 % (8-40); MCH 33.3 pg (25.7-33.7); MCHC 33.8 g/dl (32.0-36.0); MEAN CELL VOLUME 98.5 fl (80-96); MEAN PLT VOLUME 7.1 fl (7.5-11.1); MONO % 5.5 % (3.8-10.2); PLATELET COUNT 310 10^3/uL (134-434); RBC 3.47 M/mm3 (3.60-5.2); RDW 15.2 % (11.6-15.6); WHITE BLOOD COUNT 7.1 K/mm3 (4.0-10.0)
[2023-12-23 20:53] LABS: INR 0.94 (0.83-1.09); PROTHROMBIN TIME (PATIENT) 10.9 SEC (9.7-13.0)
[2023-12-23 20:56] LABS: ACTIVATED PTT 24.6 SECONDS (25.2-36.5)
[2023-12-23 21:20] LABS: POTASSIUM 3.9 mmol/L (3.5-5.1)
[2023-12-23 21:23] LABS: ALBUMIN 3.6 g/dl (3.4-5.0); BLOOD UREA NITROGEN 10.9 mg/dL (7-18)
[2023-12-23 21:26] LABS: CREATININE 0.7 mg/dL (0.55-1.3)
[2023-12-23 21:27] LABS: BILIRUBIN,TOTAL 0.4 mg/dL (0.2-1); TOT PROT 7.1 g/dl (6.4-8.2)
[2023-12-23] MEDS ORDERED: DIPHTH,PERTUSS(ACELL),TET 0.5 ML DISP.SYRIN IM ONE (23:48)
[2023-12-23] MEDS: DIPHTH,PERTUSS(ACELL),TET 0.5 ML DISP.SYRIN IM ONE (23:51)
[2023-12-23] MEDS ORDERED: KETOROLAC TROMETHAMINE 15 MG/ML VIAL ONE (23:53)
[2023-12-23] MEDS: KETOROLAC TROMETHAMINE 15 MG/ML VIAL IVPUSH ONE (23:56)
== END 2023-12-24 00:30 | disposition home or self-care (01) ==
LOC: JER 19:48
PROC: 3E030NZ Introduction of Analgesics, Hypnotics, Sedatives into Peripheral Vein, Open Approach (ICD-10-PCS; principal; 2023-12-23)
PROC: 3E0303Z Introduction of Anti-inflammatory into Peripheral Vein, Open Approach (ICD-10-PCS; 2023-12-23)
PROC: 3E0234Z Introduction of Serum, Toxoid and Vaccine into Muscle, Percutaneous Approach (ICD-10-PCS; 2023-12-23)
DX: S09.90XA Unspecified injury of head, initial encounter (principal); M79.18 Myalgia, other site; Y04.0XXA Assault by unarmed brawl or fight, initial encounter
CPT/HCPCS: 36415; 70450-TC; 70486-TC; 71260-TC; 72125-TC; 72128-TC; 72131-TC; 74177-TC; 80053; 84703; 85025; 85610; 85730; 86850; 86900; 86901; 90471; 90715; 93005; 93010; 96374; 96375; 99285-25; J0131

== ENCOUNTER 2024-07-01 20:48 | Emergency (ER) | payer OTHER ==
[2024-07-01 20:55] VITALS: BP 100/76; PULSE 102; RESP 16; TEMP 98.1; BMI 18.3
[2024-07-02] MEDS ORDERED: THIAMINE 100 MG TABLET ONE (00:52)
[2024-07-02] MEDS ORDERED: FOLIC ACID 1 MG TABLET (FP) ONE (00:52)
[2024-07-02] MEDS: FOLIC ACID 1 MG TABLET (FP) PO ONE (01:04)
[2024-07-02] MEDS: THIAMINE 100 MG TABLET PO ONE (01:04)
== END 2024-07-02 02:36 | disposition home or self-care (01) ==
LOC: JER 20:48
DX: R51.9 Headache, unspecified (principal); M79.621 Pain in right upper arm; M79.661 Pain in right lower leg; W18.30XA Fall on same level, unspecified, initial encounter
CPT/HCPCS: 36415; 70450-TC; 71045-TC-FY; 72125-TC; 72170-TC-FY; 82962; 84703; 99285-25

== ENCOUNTER 2024-07-21 23:59 | Emergency (ER) | payer OTHER ==
[2024-07-22 00:05] VITALS: BP 151/94; PULSE 91; RESP 22; TEMP 97.7; BMI 17.5
[2024-07-22] MEDS ORDERED: ACETAMINOPHEN 325 MG TABLET (FP) ONE (01:20)
[2024-07-22] MEDS: ACETAMINOPHEN 325 MG TABLET (FP) PO ONE (01:24)
[2024-07-22 01:26] LABS: BASO % 1.1 % (0-2.0); EOS % 3.2 % (0-4.5); HEMATOCRIT 33.7 % (32.4-45.2); HEMOGLOBIN 11.4 GM/dL (10.7-15.3); LYMPH % 28.5 % (8-40); MCH 33.8 pg (25.7-33.7); MCHC 33.8 g/dl (32.0-36.0); MEAN CELL VOLUME 99.9 fl (80-96); MONO % 5.3 % (3.8-10.2); NEUT % 61.9 % (42.8-82.8); PLATELET COUNT 361 10^3/uL (134-434); RBC 3.37 M/mm3 (3.60-5.2); RDW 14.2 % (11.6-15.6); WHITE BLOOD COUNT 5.7 K/mm3 (4.0-10.0)
[2024-07-22 02:28] LABS: POTASSIUM 4.1 mmol/L (3.5-5.1)
[2024-07-22 02:29] LABS: CALCIUM 8.5 mg/dL (8.5-10.1)
[2024-07-22 02:30] LABS: ALBUMIN 3.6 g/dl (3.4-5.0); BLOOD UREA NITROGEN 12.2 mg/dL (7-18)
[2024-07-22 02:33] LABS: CREATININE 0.9 mg/dL (0.55-1.3)
[2024-07-22 02:35] LABS: BILIRUBIN,TOTAL 0.4 mg/dL (0.2-1)
== END 2024-07-22 02:34 | disposition home or self-care (01) ==
LOC: JER 23:59
DX: N93.9 Abnormal uterine and vaginal bleeding, unspecified (principal)
CPT/HCPCS: 36415; 80053; 84703; 85025; 86850; 86900; 86901; 99284-25